=== PATIENT | male | born 1935 | race Caucasian/White ===

== ENCOUNTER 2021-10-10 10:21 | Inpatient (IN) ==
--- NOTE | 2021-10-10 12:31 | XRay Report ---
XR chest 2V PA/lateral HISTORY: Sepsis COMPARISON: None. FINDINGS: There is a 2 cm calcification within the right upper lobe. This is likely benign. A 9 mm no dular density at the left lung base favors a nipple shadow. No focal lung consolidations to suggest p neumonia. No evidence for pulmonary edema. The heart is normal in size. No pleural effusions. No pneu mothorax. IMPRESSION: No acute process. ACT 112: Negative or not required by law. Electronically signed by: Tam Child M.D. 10/10/2021 12:29 PM
[2021-10-10] MEDS ORDERED: SODIUM CHLORIDE 0.9% 1000ML 1,000 ML IV ONE (12:51)
--- NOTE | 2021-10-10 13:08 | Emergency Department Note ---
History of Present Illness General Chief complaint: Skin Problem Stated complaint: ABSCESS ON SCALP Time Seen by Provider: 10/10/21 12:44 Source: patient, RN notes reviewed and old records reviewed Mode of arrival: wheelchair Limitations: altered mental status (dementia) History of Present Illness Provider complaint: Worsening scalp wound Maximum Pain Intensity: 5 This is an 85-year-old male from a local incarceration facility who presents to the emergency room due to worsening scalp wound. Patient states it has been there for several days. Patient states he has pain in the area of the wound and along the left side of the head. Patient denies any fevers or chills. I did contact the [facility] to see direct view and spoke with the nurse there who states patient was started on oral clindamycin on the and was then changed to IV clindamycin on the . They state a wound culture was obtained on the but is still pending. They are concerned as the redness seems to be spreading along the scalp and the wound appeared worse. They state he has no history of MRSA, he is not a diabetic. They states due to his dementia he does tend to pick at things. He did have a prior abscess on his head a year ago that did get better with antibiotics. They state yesterday he was given an additional dose of IM Rocephin. Pt seen during a time of high acuity and national emergency pandemic while wearing PPE. Home Medications Medication Instructions Recorded Confirmed Type fluconazole 150 mg tablet 150 mg PO .weekly 1 dose #8 tabs 10/09/21 Rx ketoconazole 2 % shampoo See Rx Instructions .Route 10/09/21 Rx .COMPLEX #120 mL Allergies Allergy/AdvReac Type Severity Reaction Status Date / Time No Known Allergies Allergy Verified 10/10/21 13:38 Past Med/Surg History Medical History (Updated 10/10/21 @ 20:36 by Re Reyes DO) Alzheimer disease No pertinent family history Schizophrenia Surgical History No pertinent past surgical history Social History Smoking Status: Unknown if ever smoked Tobacco Type: Pipe and Cigars Feels Safe at Home: Yes Review of Systems A total of 10 systems reviewed and were otherwise negative All systems reviewed & are unremarkable except as noted in HPI & below Physical Exam Vital Signs Vital Signs - 24 hr 10/10/21 10:52 10/10/21 13:36 10/10/21 13:36 Temperature 36.7 C Temperature Source Temporal Artery Scan Pulse Rate 98 H 89 Pulse Rate [Apical] 89 Respiratory Rate 18 18 18 Respiratory Effort / Characteristics Non-Labored Respiratory Depth Normal Blood Pressure 90/51 L Blood Pressure [Right Arm] 124/77 Blood Pressure Mean 64 Blood Pressure Mean [Right Arm] 92 Pulse Oximetry 98 96 96 Oxygen Delivery Method Room Air Room Air Room Air Sepsis Recent Fever Within 48 Hours No Sepsis New/Unexplained Change in Mental Status No Sepsis Action Taken by Nursing No Action Required 10/10/21 14:31 Temperature Temperature Source Pulse Rate Pulse Rate [Apical] 89 Respiratory Rate 18 Respiratory Effort / Characteristics Non-Labored Respiratory Depth Normal Blood Pressure Blood Pressure [Right Arm] 153/89 H Blood Pressure Mean Blood Pressure Mean [Right Arm] 110 Pulse Oximetry 99 Oxygen Delivery Method Room Air Sepsis Recent Fever Within 48 Hours Sepsis New/Unexplained Change in Mental Status Sepsis Action Taken by Nursing GENERAL: alert, well appearing, well nourished, no distress, non-toxic HEAD: Maculopapular lesion noted to the right superior scalp with surrounding erythema extending anteriorly and posterolaterally along the left side of the head, no active drainage or bleeding, areas of demarcation with marking pen noted EYE EXAM: normal conjunctiva, PERRL and EOM's grossly intact OROPHARYNX: no exudate, no erythema, lips, buccal mucosa, and tongue normal and mucous membranes are moist NECK: supple, no nuchal rigidity, no adenopathy, non-tender LUNGS: Clear to auscultation. Normal chest wall mechanics, no w/r/r HEART: no murmurs, S1 normal and S2 normal ABDOMEN: abdomen soft, non-tender, normo-active bowel sounds, no masses, no rebound or guarding. BACK: Back is symmetrical on inspection and there is no deformity, no midline tenderness, no CVA tenderness. SKIN: no rashes and no bruising UPPER EXTREMITIES: upper extremities are grossly normal. FROM, nml pulses b/l. LOWER EXTREMITIES: No pitting edema. FROM, nml pulses b/l. NEURO EXAM: Pleasantly confused, cranial nerves II-XII grossly intact, normal speech, no gross weakness of arms, no gross weakness of legs. Gross sensation intact. Course Administered Medications Tamsulosin HCl (Tamsulosin Hcl 0.4 Mg Cap) 0.4 mg PO HS BRIAN Stop: 11/09/21 20:59 Last Admin: 10/10/21 20:21 Dose: 0.4 mg Documented By: ANANTH Discontinued Medications Sodium Chloride (Nss 1000ml) 1,000 mls @ 999 mls/hr IV .Q1H1M ONE Stop: 10/10/21 13:51 Last Infusion: 10/10/21 16:23 Dose: 0 mls/hr Documented By: Admin: 10/10/21 13:40 Dose: 999 mls/hr Documented By: HECTOR Vancomycin HCl 1,500 mg/ (Sodium Chloride) 530 mls @ 200 mls/hr IV NOW ONE Stop: 10/10/21 17:01 Last Infusion: 10/10/21 18:31 Dose: 0 mls/hr Documented By: Admin: 10/10/21 15:32 Dose: 200 mls/hr Documented By: MIRIAM Ceftriaxone Sodium (Rocephin) 1,000 mg in 50 mls @ 100 mls/hr IV NOW STA Stop: 10/10/21 14:52 Last Infusion: 10/10/21 15:19 Dose: 0 mls/hr Documented By: Admin: 10/10/21 14:40 Dose: 100 mls/hr Documented By: HECTOR Ceftriaxone Sodium 1,000 mg/ (Dextrose) 60 mls @ 120 mls/hr IV ONE ONE Stop: 10/10/21 16:29 Last Infusion: 10/10/21 18:31 Dose: 0 mls/hr Documented By: Admin: 10/10/21 17:39 Dose: 120 mls/hr Documented By: ANANTH Miscellaneous (Patient's Height &/Or Weight Needed) 1 each N/A Q30M BRIAN Stop: 11/09/21 17:15 Last Admin: 10/10/21 18:53 Dose: 1 each Documented By: Admin: 10/10/21 18:49 Dose: 1 each Documented By: Admin: 10/10/21 18:49 Dose: 1 each Documented By: ANANTH Medical Decision Making Differential Diagnosis Differential diagnosis includes etiologies such as cellulitis, abscess, MRSA infection, DVT, necrotizing fasciitis, dermatitis, drug eruption, as well as others were entertained. Medical Records Attestation: I reviewed the patient's medical records. Home Medications Current Medication List: was personally reviewed by me Laboratory Data Attestation: I reviewed the patient's lab results. Result diagrams: 10/10/21 13:05 10/10/21 13:05 Lab Results 10/10/21 10/10/21 10/10/21 Range/Units 13:05 13:05 13:05 WBC 16.32 H (4.8-10.8) K/ul RBC 4.51 L (4.63-6.08) M/uL Hgb 13.5 L (14.0-18.0) g/dl Hct 39.5 L (40.1-51.0) % MCV 87.6 (80.0-100.0) fL MCH 29.9 (25.0-34.0) pg MCHC 34.2 (32.0-36.0) g/dL RDW Std Deviation 46.6 H (36.4-46.3) fL RDW Coeff of Leo 14.5 (11.5-14.5) % Plt Count 336 (130-400) K/uL MPV 10.1 (9.4-12.4) fL Immature Gran % (Auto) 0.6 % Neut % (Auto) 82.8 % Lymph % (Auto) 6.4 % [place] % (Auto) 9.6 % Eos % (Auto) 0.4 % Baso % (Auto) 0.2 % Neut # (Auto) 13.50 H (1.4-6.5) K/uL Lymph # (Auto) 1.05 L (1.2-3.4) K/uL [place] # (Auto) 1.57 H (0.24-0.82) K/uL Eos # (Auto) 0.07 (0-0.50) K/uL Baso # (Auto) 0.03 (0-0.2) K/uL Immature Gran # (Auto) 0.10 H (0.00-0.02) K/uL PT 11.1 (9.0-12.0) Seconds INR 1.0 (0.9-1.1) APTT 27.5 (21.0-31.0) Seconds PTT Ratio 1.0 Sodium 137 (136-145) mmol/L Potassium 3.8 (3.5-5.1) mmol/L Chloride 101 (98-107) mmol/L Carbon Dioxide 26 (21-32) mmol/L Anion Gap 10 (3-11) BUN 24 H (6-23) mg/dl Creatinine 1.28 (0.6-1.4) mg/dl Est Cr Clr Drug Dosing Not Reportable Est GFR ( Amer) 57.9 ml/min Est GFR (Non-Af Amer) 50.0 ml/min BUN/Creatinine Ratio 18.8 (10-20) Glucose 117 H (70-99(Fasting)) mg/dl Calcium 9.2 (8.5-10.1) mg/dl Magnesium 2.0 (1.7-2.4) mg/dl Total Bilirubin 1.0 (0.2-1.0) mg/dl AST 23 (13-39) U/L ALT 16 (7-52) U/L Alkaline Phosphatase 72 (34-104) U/L Troponin I High Sens 28.3 H (0-20) pg/ml C-Reactive Protein (0-0.5) mg/dl Total Protein 7.4 (6.0-8.3) gm/dl Albumin 3.7 (3.4-5.0) gm/dl Globulin 3.7 (2.5-4.0) gm/dl Albumin/Globulin Ratio 1.0 (0.9-2) Procalcitonin (0-0.5) ng/ml SARS-CoV-2, RNA, NAAT (NEGATIVE) 10/10/21 10/10/21 10/10/21 Range/Units 13:05 13:05 14:35 WBC (4.8-10.8) K/ul RBC (4.63-6.08) M/uL Hgb (14.0-18.0) g/dl Hct (40.1-51.0) % MCV (80.0-100.0) fL MCH (25.0-34.0) pg MCHC (32.0-36.0) g/dL RDW Std Deviation (36.4-46.3) fL RDW Coeff of Leo (11.5-14.5) % Plt Count (130-400) K/uL MPV (9.4-12.4) fL Immature Gran % (Auto) % Neut % (Auto) % Lymph % (Auto) % [place] % (Auto) % Eos % (Auto) % Baso % (Auto) % Neut # (Auto) (1.4-6.5) K/uL Lymph # (Auto) (1.2-3.4) K/uL [place] # (Auto) (0.24-0.82) K/uL Eos # (Auto) (0-0.50) K/uL Baso # (Auto) (0-0.2) K/uL Immature Gran # (Auto) (0.00-0.02) K/uL PT (9.0-12.0) Seconds INR (0.9-1.1) APTT (21.0-31.0) Seconds PTT Ratio Sodium (136-145) mmol/L Potassium (3.5-5.1) mmol/L Chloride (98-107) mmol/L Carbon Dioxide (21-32) mmol/L Anion Gap (3-11) BUN (6-23) mg/dl Creatinine (0.6-1.4) mg/dl Est Cr Clr Drug Dosing Est GFR ( Amer) ml/min Est GFR (Non-Af Amer) ml/min BUN/Creatinine Ratio (10-20) Glucose (70-99(Fasting)) mg/dl Calcium (8.5-10.1) mg/dl Magnesium (1.7-2.4) mg/dl Total Bilirubin (0.2-1.0) mg/dl AST (13-39) U/L ALT (7-52) U/L Alkaline Phosphatase (34-104) U/L Troponin I High Sens (0-20) pg/ml C-Reactive Protein 19.60 H (0-0.5) mg/dl Total Protein (6.0-8.3) gm/dl Albumin (3.4-5.0) gm/dl Globulin (2.5-4.0) gm/dl Albumin/Globulin Ratio (0.9-2) Procalcitonin 1.75 H (0-0.5) ng/ml SARS-CoV-2, RNA, NAAT NEGATIVE (NEGATIVE) Imaging Data Radiologist's Impression: Chest X-Ray 10/10/21 11:44 XR chest 2V PA/lateral HISTORY: Sepsis COMPARISON: None. FINDINGS: There is a 2 cm calcification within the right upper lobe. This is likely benign. A 9 mm nodular density at the left lung base favors a nipple shadow. No focal lung consolidations to suggest pneumonia. No evidence for pulmonary edema. The heart is normal in size. No pleural effusions. No pneumothorax. IMPRESSION: No acute process. ACT 112: Negative or not required by law. Electronically signed by: Tam Child M.D. 10/10/2021 12:29 PM MDM Narrative This is an 85-year-old male brought in from local correctional facility. Patient already on antibiotics per [facility] for presumed abscess and evolving cellulitis. Nothing aspirated during patient's ED visit here yesterday. Staff they are concerned involved area appears to be spreading as he has worsening erythema outside previously demarcated lines. Labs drawn and sent, cultures obtained, and antibiotics discussed with the ED pharmacist. While patient was afebrile and hemodynamically stable, he did have a leukocytosis as well as elevated procalcitonin. Patient started on Rocephin and Doxy per ED pharmacist recommendation. Case discussed with hospitalist for additional evaluation and management. Impression & Plan Abscess of scalp, Cellulitis of head or scalp, Failure of outpatient treatment, Elevated procalcitonin Discharge Plan Visit Data Chief Complaint: Skin Problem Stated Complaint: ABSCESS ON SCALP ED Provider: Re Reyes Discharge Problem: Abscess of scalp, Cellulitis of head or scalp, Failure of outpatient treatment, Elevated procalcitonin Patient Disposition: Admitted As Inpatient Discharge Instructions Interventions: ED Discharge Assessment Last Done: 10/10/21 17:30
[2021-10-10 13:32] LABS: Basophils # (auto) 0.03 K/uL (0-0.2); Basophils % (auto) 0.2 %; Eosinophils # (auto) 0.07 K/uL (0-0.50); Eosinophils % (auto) 0.4 %; Hematocrit (blood only) 39.5 % (40.1-51.0); Hemoglobin 13.5 g/dl (14.0-18.0); Immature Granulocytes % (auto) 0.6 %; Lymphocytes # (auto) 1.05 K/uL (1.2-3.4); Lymphocytes % (auto) 6.4 %; Mean Corpuscular Hemoglobin 29.9 pg (25.0-34.0); Mean Corpuscular Hgb Conc 34.2 g/dL (32.0-36.0); Mean Corpuscular Volume 87.6 fL (80.0-100.0); Mean Platelet Volume 10.1 fL (9.4-12.4); Monocytes # (auto) 1.57 K/uL (0.24-0.82); Monocytes % (auto) 9.6 %; Neutrophils % (auto) 82.8 %; Platelet Count 336 K/uL (130-400); RDW Coefficient of Variation 14.5 % (11.5-14.5); RDW Standard Deviation 46.6 fL (36.4-46.3); Red Blood Count 4.51 M/uL (4.63-6.08); White Blood Count 16.32 K/ul (4.8-10.8)
[2021-10-10 13:46] LABS: Partial Thromboplastin Time 27.5 Seconds (21.0-31.0); Prothrombin Time 11.1 Seconds (9.0-12.0)
[2021-10-10 13:55] LABS: Alanine Aminotransferase 16 U/L (7-52); Albumin Level 3.7 gm/dl (3.4-5.0); Alkaline Phosphatase 72 U/L (34-104); Anion Gap 10 (3-11); Aspartate Aminotransferase 23 U/L (13-39); BUN Creatinine Ratio 18.8 (10-20); Blood Urea Nitrogen 24 mg/dl (6-23); Calcium 9.2 mg/dl (8.5-10.1); Carbon Dioxide 26 mmol/L (21-32); Chloride 101 mmol/L (98-107); Est GFR (African American) 57.9 ml/min; Globulin 3.7 gm/dl (2.5-4.0); Glucose 117 mg/dl (70-99(Fasting)); Potassium 3.8 mmol/L (3.5-5.1); Sodium 137 mmol/L (136-145); Total Protein 7.4 gm/dl (6.0-8.3); Troponin I High Sensitivity 28.3 pg/ml (0-20)
[2021-10-10] MEDS ORDERED: VANCOMYCIN CONSULT ACTIVE PRN (14:23)
[2021-10-10] MEDS ORDERED: VANCOMYCIN HCL 1,500 MG in SODIUM CHLORIDE 0.9% 500 ML IV ONE (14:23)
[2021-10-10] MEDS ORDERED: cefTRIAXone SODIUM 1,000 MG/50 ML BAG IV STA (14:23)
--- NOTE | 2021-10-10 14:50 | History & Physical Report ---
Date of Service October 10, 2021 Assessment & Plan (1) Cellulitis: Plan: Cellulitis, left posterior scalp expanding past borders failing outpatient treatment With area of fluctuance concerning for abscess. Mildly purulent. Expanding borders of erythema starting from lump at left posterior scalp extending to the nape of the neck into the temples. Erythema extends past multiple marked lines of expansion. Is slightly tender to the touch. Follow for cultures obtained present, no growth to date Continue Rocephin/vancomycin. Ultrasound obtained to evaluate for fluid, if area of abscess would need drainage and can consult general surgery. Will not consider Rocephin failure yet has only received 1 dose, and possible MRSA given purulence. Cultures pending. Leukocytosis to 16.32 Sodium normal, potassium normal Creatinine 1.28 on admission, at baseline Procalcitonin 1.75 Mildly hypertensive, pulse 89, respirations 18, afebrile and satting well on room CXR: No acute process Blood cultures pending x2 EKG with right bundle branch block, no acute findings Urinary retention/overflow/LUTS Continue Myrbetriq, Flomax Bladder scan every shift, cath as needed Alzheimer's dementia Continue donepezil DVT prophylaxis: Heparin twice daily, hold if I&D required CODE STATUS: Full code Diet: Regular Disposition: Medical/surgical (2) BPH w urinary obs/LUTS: History of Present Illness Primary Care Provider: HILTON Stanley Franki is an 85-year-old male in the who presents from alf with a worsening scalp wound present for several days which did not improve on oral and then subsequently IV clindamycin. Wound culture was obtained on 10/08, remains pending. Redness at the scalp appears to be spreading. No MRSA, no history of diabetes. Patient does have dementia and picks at his wounds. Did have an abscess 1 year previously. Did get IM Rocephin yesterday. Failing to improve, has an area of fluctuance. Seen at the bedside. History is somewhat limited by dementia. Reports that he has had a large lump on the back of his head which is painful which he thinks oozes. Is not sure how long it has been there. Is not oriented to year. Endorses feeling feverish with some chills. No lightheadedness, dizziness, chest pain, chest pressure, palpitations. Did receive clindamycin p.o. for at least 5 days, then tried IV, and then received 1 dose of oral Rocephin with continued expansion of borders. Has been referred for additional treatment care cellulitis. Patient is unable to give medical history due to dementia and is tangential however medical review as follows: Vascular dementia without behavioral disturbance, Alzheimer's Incontinence History of corneal transplant Anemia with B12 deficiency BPH with LUTS Chronic medications Tylenol daily, artificial tears, donepezil 10 mg daily, finasteride 5 mg daily, hydroxyzine 25 mg 3 times daily, Myrbetriq 25 mg daily, prednisone ophthalmic into the left eye once daily, tamsulosin 0.4 mg 1 capsule twice daily Medical History: Reviewed Medications: Reviewed Surgical History: Reviewed Allergies: Reviewed Social History: No tobacco/alcohol use Code Status: Full code Allergies Allergy/AdvReac Type Severity Reaction Status Date / Time No Known Allergies Allergy Verified 10/10/21 13:38 Home Medications Medication Instructions Recorded Confirmed Type fluconazole 150 mg tablet 150 mg PO .weekly 1 dose #8 tabs 10/09/21 Rx ketoconazole 2 % shampoo See Rx Instructions .Route 10/09/21 Rx .COMPLEX #120 mL Past Med/Surg History Medical History (Updated 10/10/21 @ 15:08 by Gerard Viera MD) Alzheimer disease No pertinent family history Schizophrenia Surgical History No pertinent past surgical history Social History Smoking Status: Unknown if ever smoked Tobacco Type: Pipe and Cigars Feels Safe at Home: Yes Review of Systems Review of Systems: All systems reviewed & are unremarkable except as noted in Subjective Physical Exam Physical Exam: General: Patient is now oriented to year or month. Oriented to name HEENT: Posterior left scalp with 3 cm raised lump with palpable fluctuance, overlying purulence and surrounding erythema expanding overlying the lutheran and mid scalp posteriorly without underlying fluctuance. Has passed multiple marked lines. Pulm: CTAB A&P. -wheezes, -rales, -rhonchi. Symmetrical chest rise. No increase in work of breathing. No respiratory distress. Cardiac: RRR, -mrg. Radial pulses intact and symmetrical. Abdominal: Nontender, nondistended, soft. BS present. Extremities: Moves all extremities equally. Sensation soft touch intact in hands and feet without asymmetry Results & Data Results & Data ([facility]) Vital Signs (Past 12 Hours) Vital Signs Temp Pulse Pulse Resp BP BP Pulse Ox 10/10/21 14:31 89 18 153/89 H 99 10/10/21 13:36 89 18 96 10/10/21 13:36 89 18 124/77 96 10/10/21 10:52 36.7 C 98 H 18 90/51 L 98 O2 Del Method 10/10/21 14:31 Room Air 10/10/21 13:36 Room Air 10/10/21 13:36 Room Air 10/10/21 10:52 Room Air PG Care Time/CCT Total # of Minutes Spent Total Time Spent with Patient: Total time spent is greater than 50% in coordination of care (as documented) at patient's floor/unit and/or counseling patient: Coding Level of Care Code INT OBSERVATION CARE 50M LVL 2 Diagnoses Cellulitis L03.90 BPH w urinary obs/LUTS N40.1; N13.8
[2021-10-10] MEDS ORDERED: cefTRIAXone SODIUM 1,000 MG in DEXTROSE 5% 50 ML IV ONE (16:00)
[2021-10-10] MEDS: Patient's HEIGHT &/or WEIGHT Needed SCH ×2 (18:49→18:53)
[2021-10-10] MEDS: TAMSULOSIN HCL 0.4 MG CAP PO SCH (20:21)
--- NOTE | 2021-10-10 21:02 | Pharmacy Report ---
Pharmacy PK ABX Note - Date of Service October 10, 2021 - Assessment and Plan Assessment 85 year old M receiving vancomycin/ceftriaxone for treatment of left posterior scalp cellulitis. Patient with leukocytosis, elevated procalcitonin. Blood cultures pending. Plan Vancomycin * Loading dose: 1500 mg IV x 1 * Maintenance dose: 1000 mg IV every 24 hours * Regimen is predicted to achieve target AUC/MELVIN of 400-600 mg/L.hr * Random to be ordered if vancomycin continued greater than 48 hours Pharmacy will continue to follow and will adjust dose/frequency as necessary. Thank you. Pharmacy has transitioned to AUC monitoring for vancomycin. AUC/MELVIN is the preferred PK/PD target and is associated with decreased risk of nephrotoxicity compared to traditional trough targets.
[2021-10-10] MEDS: HEPARIN SOD 5,000 UNIT/0.5 ML VIAL SQ SCH (23:36)
[2021-10-11 06:56] LABS: A calco-baum cmplx NotReported Not Detected (NotDetected); Bact fragilis Not Reported Not Detected (NotDetected); C auris Not Reported Not Detected (NotDetected); Calbicans Not Reported Not Detected (NotDetected); Candida glabrata Not Reported Not Detected (NotDetected); Candida krusei Not Reported Not Detected (NotDetected); Cneoformans/gatti Not Reported Not Detected (NotDetected); Cparapsilosis Not Reported Not Detected (NotDetected); Ctropicalis Not Reported Not Detected (NotDetected); E cloacae compx Not Reported Not Detected (NotDetected); Efaecalis Not Reported Not Detected (NotDetected); Efaecium Not Reported Not Detected (NotDetected); Enterobacterales Not Reported Not Detected (NotDetected); Escherichia coli Not Reported Not Detected (NotDetected); H influenzae Not Reported Not Detected (NotDetected); K aerogenes Not Reported Not Detected (NotDetected); Koxytoca Not Reported Not Detected (NotDetected); Kpneumoniae grp Not Reported Not Detected (NotDetected); Lmonocyt Not Reported Not Detected (NotDetected); N meningitidis Not Reported Not Detected (NotDetected); P aeruginosa Not Reported Not Detected (NotDetected); Proteus spp Not Reported Not Detected (NotDetected); Salmonella spp Not Reported Not Detected (NotDetected); Smarcescens Not Reported Not Detected (NotDetected); Staph lugdunensis Not Reported Not Detected (NotDetected); Staph spp. Not Reported DETECTED (NotDetected); Staphaureus Not Reported DETECTED (NotDetected); Staphepi Not Reported Not Detected (NotDetected); Staphylococcus spp. DETECTED (NotDetected); Stenmaltophilia Not Reported Not Detected (NotDetected); Strep agal(GrpB) Not Reported Not Detected (NotDetected); Strep pneum Not Reported Not Detected (NotDetected); Strep pyog (GrpA) Not Reported Not Detected (NotDetected); Strep spp Not Reported Not Detected (NotDetected); mecAC+MREJ Resistant Gene MRSA Not Detected (NotDetected)
[2021-10-11] MEDS: DONEPEZIL HCL 10 MG TAB PO SCH (08:04)
[2021-10-11] MEDS: HEPARIN SOD 5,000 UNIT/0.5 ML VIAL SQ SCH ×2 (08:04→21:36)
[2021-10-11] MEDS: MIRABEGRON ER 25 MG TAB PO SCH (08:04)
[2021-10-11 08:31] LABS: Appearance Urine Clear (Clear); Bilirubin Urine Negative (Negative); Blood Urine Negative (Negative); Color Urine Yellow; Glucose Urine UA Negative (Negative); Ketones Urine Trace (Negative); Leukocyte Esterase Urine Negative (Negative); Nitrite Urine Negative (Negative); Protein Urine Negative (Negative); Specific Gravity Urine 1.018 (1.000-1.030); Urobilinogen Urine Negative (Negative); pH Urine 5.5 (4.5-7.5)
[2021-10-11 08:41] LABS: Basophils # (auto) 0.03 K/uL (0-0.2); Basophils % (auto) 0.2 %; Eosinophils # (auto) 0.31 K/uL (0-0.50); Eosinophils % (auto) 2.3 %; Hematocrit (blood only) 34.5 % (40.1-51.0); Hemoglobin 11.6 g/dl (14.0-18.0); Immature Granulocytes # (auto) 0.12 K/uL (0.00-0.02); Immature Granulocytes % (auto) 0.9 %; Lymphocytes # (auto) 1.56 K/uL (1.2-3.4); Lymphocytes % (auto) 11.4 %; Mean Corpuscular Hemoglobin 29.8 pg (25.0-34.0); Mean Corpuscular Hgb Conc 33.6 g/dL (32.0-36.0); Mean Corpuscular Volume 88.7 fL (80.0-100.0); Mean Platelet Volume 9.7 fL (9.4-12.4); Monocytes # (auto) 1.61 K/uL (0.24-0.82); Monocytes % (auto) 11.8 %; Neutrophils # (auto) 10.07 K/uL (1.4-6.5); Neutrophils % (auto) 73.4 %; Platelet Count 319 K/uL (130-400); RDW Coefficient of Variation 14.4 % (11.5-14.5); RDW Standard Deviation 46.5 fL (36.4-46.3); Red Blood Count 3.89 M/uL (4.63-6.08)
--- NOTE | 2021-10-11 08:47 | Ultrasound Report ---
US soft tissue head and neck CLINICAL HISTORY: limited to post R scalp, ?abscess. Left posterior scalp swelling. COMPARISON STUDY: Head CT 05/12/2019. FINDINGS: Real-time sonographic imaging of the posterior scalp was performed with student services representative imag es submitted. There is a subcutaneous ill-defined hypoechoic collection measuring 34 x 19 x 8 mm. The re is increased color flow surrounding this area. There is a small tract that extends to the skin yann face. Therefore, this favors a small abscess. Follow-up can be performed to ensure resolution and to exclude an infiltrating lesion. IMPRESSION: There is a subcutaneous ill-defined hypoechoic collection measuring 34 x 19 x 8 a small tract that extends to the skin surface. This favors a small abscess. Follow-up can be performed to en sure resolution and to exclude an infiltrating lesion. ACT 112: Negative or not required by law. Electronically signed by: Tam Child M.D. 10/11/2021 8:45 AM
[2021-10-11] MEDS ORDERED: VANCOMYCIN HCL 1,000 MG in SODIUM CHLORIDE 0.9% 250 ML IV SCH (09:00)
[2021-10-11 09:03] LABS: Albumin Globulin Ratio 0.9 (0.9-2); Albumin Level 2.9 gm/dl (3.4-5.0); BUN Creatinine Ratio 18.5 (10-20); Bilirubin,Total 0.8 mg/dl (0.2-1.0); C Reactive Protein 15.56 mg/dl (0-0.5); Calcium 8.2 mg/dl (8.5-10.1); Creatinine Clr Calc Pharmacy 48.2 ml/min; Est GFR (African American) 71.1 ml/min; Est GFR (Non-African American) 61.4 ml/min; Globulin 3.1 gm/dl (2.5-4.0); Potassium 3.3 mmol/L (3.5-5.1)
--- NOTE | 2021-10-11 09:03 | Electrocardiogram Report ---
Test Reason : Blood Pressure : / mmHG Vent. Rate : 091 BPM Atrial Rate : 091 BPM P-R Int : 180 ms QRS Dur : 128 ms QT Int : 392 ms P-R-T Axes : 031 028 031 degrees QTc Int : 482 ms Normal sinus rhythm with sinus arrhythmia Right bundle branch block Abnormal ECG No previous ECGs available Confirmed by Christian Garner ([id number]) on 10/11/2021 9:02:59 AM Referred By: [facility] Confirmed By:Christian Garner
--- NOTE | 2021-10-11 09:58 | XCELERA ---
[id number]
--- NOTE | 2021-10-11 12:52 | Hospitalist Progress Note ---
Date of Service October 11, 2021 Assessment & Plan (1) Cellulitis: Plan: Cellulitis with abscess formation of scalp that failed outpatient treatment - Initially placed in obs, started on Rocephin and Vancomycin - Change to full admit - Blood cultures positive w/ growth of staph, MSSA via biofire c/w bacteremia - D/c Rocephin/Vanco and change to Ancef 2g IV q8h - Consult general surgery for I&D, appreciate assistance - Hold Heparin - Leukocytosis slowly improving (2) Bacteremia: Plan: - MSSA, abx as above - Echocardiogram completed-no evidence of vegetation - Repeat blood cultures on 10/12, if negative will require midline insertion and total of 14 days of IV abx (3) Hypokalemia: Plan: - Replacement ordered (4) Alzheimer disease: Plan: - Continue Aricept and Namenda (5) BPH w urinary obs/LUTS: Plan: - Continue Flomax - Bladder scan and cath as needed Plan Interventions as outlined above. Make full admission. Repeat labs in AM and blood cultures. Proceed with midline insertion if blood cultures from tomorrow are negative. CM consult for d/c planning, unsure if detention will be able to accommodate IV abx. Plan to be d/w Dr. Jun Manuel. Admission and Anticipated Discharge Date Admission Date: October 10, 2021 Subjective Patient seen on daily rounds this morning. He is resting comfortably in bed and offers no new complaints/concerns at this time. Pt with dementia and TORRES MARTINEZ but denies c/o pain, fever, chills, chest pain, dyspnea, n/v/d, headache, or gu symptoms. Pt's reliability uncertain. Review of Systems Review of Systems: All systems reviewed and are unremarkable except as noted in HPI and below. Denies fever, chills, fatigue, headache, nasal congestion, sore throat, cough, chest pain, shortness of breath, palpitations, orthopnea, PND, abdominal pain, n/v/d, constipation, dysuria, hematuria, frequency, back pain, joint pain or swelling, easy bruising or bleeding. Physical Exam Physical Exam: GENERAL: 85 yo Well-developed, well-nourished elderly WM. NAD. LUNGS: Clear to auscultation bilaterally. No W/R/R. CARDIOVASCULAR: Regular rate and rhythm. ABDOMEN: Soft, non-tender and non-distended. BS normoactive x 4 quad. EXTREMITIES: No edema. Non-tender. Peripheral pulses +2/4. NEUROLOGIC: A&O x3. Nonfocal PSYCHIATRIC: Pleasant, Cooperative. Appropriate mood and affect. SKIN: Warm, dry, intact. Erythema noted over scalp and portion of face. 50 cent piece area of fluctuance on top of scalp. Results & Data Results & Data ([facility]) Vital Signs (Past 12 Hours) Vital Signs Temp Pulse Resp BP Pulse Ox O2 Del Method 10/11/21 09:00 Room Air 10/11/21 08:02 37.2 C 82 16 145/75 H 98 Room Air Laboratory Results 10/11/21 08:19 10/11/21 08:19 Diagnostic Findings Head/Neck Ultrasound 10/10/21 15:40 US soft tissue head and neck CLINICAL HISTORY: limited to post R scalp, ?abscess. Left posterior scalp swelling. COMPARISON STUDY: Head CT 05/12/2019. FINDINGS: Real-time sonographic imaging of the posterior scalp was performed with associate financial representative images submitted. There is a subcutaneous ill-defined hypoechoic collection measuring 34 x 19 x 8 mm. There is increased color flow surrounding this area. There is a small tract that extends to the skin surface. Therefore, this favors a small abscess. Follow-up can be performed to ensure resolution and to exclude an infiltrating lesion. IMPRESSION: There is a subcutaneous ill-defined hypoechoic collection measuring 34 x 19 x 8 a small tract that extends to the skin surface. This favors a small abscess. Follow-up can be performed to ensure resolution and to exclude an infiltrating lesion. ACT 112: Negative or not required by law. Electronically signed by: Tam Child M.D. 10/11/2021 8:45 AM PG Care Time/CCT Total # of Minutes Spent Total Time Spent with Patient: Total time spent is greater than 50% in coordination of care (as documented) at patient's floor/unit and/or counseling patient: Coding Level of Care Code 19993 Subseq Hosp Care Lvl 3 Diagnoses Cellulitis L03.90 Bacteremia R78.81 Hypokalemia E87.6 Alzheimer disease G30.9; F02.80 BPH w urinary obs/LUTS N40.1; N13.8
--- NOTE | 2021-10-11 13:37 | Surgery Consultation ---
Date of Consultation October 11, 2021 Assessment & Plan (1) Abscess of scalp: (2) Cellulitis: (3) Bacteremia: Plan 85 year-old male with scalp abscess, cellulitis, and bacteremia with failed outpatient treatment with oral antibiotics and a dose of IV clindamycin. Exam consistent with scalp abscess and cellulitis. Plan: Discussed with patient the imaging findings and exam findings with a scalp abscess and need for drainage to control the infection as antibiotics will not treat the abscess alone. Discussed procedure under local anesthesia and discussed risks. This was also discussed with patient by Dr. Manuel. Patient elected to proceed. Informed consent obtained. See separate dictation for bedside I&D Dr. Manuel has seen and examined pt, agrees with above. Supervising Physician Co-Signing Physician Notes I have seen and examined the patient agree with the above assessment plan. He does have what appears to be scalp abscess. I have discussed the risks and benefits of incision and drainage of the abscess with him. He is agreeable to proceed. We will obtain consent and do this at the bedside. History of Present Illness Reason for Consultation: Scalp abscess Requesting Physician: Vanessa Nicholson PA-C Attending Physician: Mikel Manuel MD History of Present Illness Franki is an 85-year-old male in the who presents from [facility] with a worsening scalp wound present for several days which did not improve on oral and then subsequently IV clindamycin.History obtained by chart as patient poor historian given dementia. No MRSA, no history of diabetes. He had an ultrasound of the scalp which showed an ill-defined fluid collection with tract extending to skin likely an abscess. He had positive blood cultures of gram positive cocci. Allergies Allergy/AdvReac Type Severity Reaction Status Date / Time sulfamethoxazole AdvReac Unknown Unknown Unverified 10/11/21 07:13 [From Bactrim] trimethoprim [From Bactrim] AdvReac Unknown Unknown Unverified 10/11/21 07:13 Home Medications Medication Instructions Recorded Confirmed Type cyanocobalamin (vitamin B-12) 1,000 mcg IM Q4WK 05/12/19 05/12/19 History 1,000 mcg/mL injection kit erythromycin 5 mg/gram (0.5 %) eye 1 applic OPL TID 05/12/19 05/12/19 History ointment finasteride 5 mg tablet 5 mg PO DAILY 05/12/19 05/12/19 History polyvinyl alcohol 1.4 % eye drops 1 drp OPB QID 05/12/19 05/12/19 History (Artificial Tears (polyvinyl alcohol)) prednisolone acetate 1 % eye 1 drp ophthalmic (eye) UD 05/12/19 05/12/19 History drops,suspension (Pred Forte) mirabegron 25 mg tablet,extended 25 mg PO DAILY #30 tabs 07/12/20 07/12/20 Rx release 24 hr (Myrbetriq) fluconazole 150 mg tablet 150 mg PO .weekly 1 dose #8 tabs 10/09/21 Rx ketoconazole 2 % shampoo See Rx Instructions .Route 10/09/21 Rx .COMPLEX #120 mL Patient History Medical History (Updated 10/12/21 @ 14:49 by Vanessa Nicholson PA-C) Alzheimer disease B12 deficiency Dementia Hearing loss No pertinent family history Schizophrenia Surgical History History of cataract surgery No pertinent past surgical history Social History (System 10/11/21 @ 07:13 by Nita Manuel) Smoking Status: Former smoker Tobacco Type: Pipe and Cigars Cigarettes Per Day: occasionally; Second Hand Exposure: No; Do You Dip or Chew Tobacco: No; Tobacco Cessation Education Requested by Patient: No Hx Alcohol Use: No Hx Substance Use: No Preferred Language: Botswanan Communication Ability: Impaired Dismantler Required: No Beliefs That Will Affect Care: None Current Living Situation: Other Current Living Situation Comment: Senior Living Other Information That Helps Us Care for You: No Feels Safe at Home: Yes Safety Concerns: Feels Safe At This Time Assistive Devices: None Physical Exam Constitutional: WD/WN, vitals as above cooperative; no acute distress and not ill appearing Neck: normal visual inspection and trachea midline Skin: no rashes, warm and dry There is a 3 x 3 cm abscess of the scalp with some scabbing present and surrounding cellulitis extending down to the left posterior ear and posterior scalp. Prior skin marking visible. There is fluctuance present . Tender to palpation. Psychiatric: Orientation: alert and oriented to person; + not oriented to place and + not oriented to time Results & Data ([facility]) Vital Signs (Past 12 Hours) Vital Signs Temp Pulse Resp BP Pulse Ox O2 Del Method 10/11/21 09:00 Room Air 10/11/21 08:02 37.2 C 82 16 145/75 H 98 Room Air Laboratory Results 10/11/21 10/11/21 10/11/21 Range/Units 08:23 08:20 08:19 WBC (4.8-10.8) K/ul RBC (4.63-6.08) M/uL Hgb (14.0-18.0) g/dl Hct (40.1-51.0) % MCV (80.0-100.0) fL MCH (25.0-34.0) pg MCHC (32.0-36.0) g/dL RDW Std Deviation (36.4-46.3) fL RDW Coeff of Leo (11.5-14.5) % Plt Count (130-400) K/uL MPV (9.4-12.4) fL Immature Gran % (Auto) % Neut % (Auto) % Lymph % (Auto) % [place] % (Auto) % Eos % (Auto) % Baso % (Auto) % Neut # (Auto) (1.4-6.5) K/uL Lymph # (Auto) (1.2-3.4) K/uL [place] # (Auto) (0.24-0.82) K/uL Eos # (Auto) (0-0.50) K/uL Baso # (Auto) (0-0.2) K/uL Immature Gran # (Auto) (0.00-0.02) K/uL PT (9.0-12.0) Seconds INR (0.9-1.1) APTT (21.0-31.0) Seconds PTT Ratio Sodium 138 (136-145) mmol/L Potassium 3.3 L (3.5-5.1) mmol/L Chloride 105 (98-107) mmol/L Carbon Dioxide 26 (21-32) mmol/L Anion Gap 7 (3-11) BUN 20 (6-23) mg/dl Creatinine 1.08 (0.6-1.4) mg/dl Est Cr Clr Drug Dosing 48.2 Est GFR ( Amer) 71.1 ml/min Est GFR (Non-Af Amer) 61.4 ml/min BUN/Creatinine Ratio 18.5 (10-20) Glucose 85 (70-99(Fasting)) mg/dl Calcium 8.2 L (8.5-10.1) mg/dl Magnesium (1.7-2.4) mg/dl Total Bilirubin 0.8 (0.2-1.0) mg/dl AST 21 (13-39) U/L ALT 16 (7-52) U/L Alkaline Phosphatase 57 (34-104) U/L Troponin I High Sens (0-20) pg/ml C-Reactive Protein 15.56 H (0-0.5) mg/dl Total Protein 6.0 (6.0-8.3) gm/dl Albumin 2.9 L (3.4-5.0) gm/dl Globulin 3.1 (2.5-4.0) gm/dl Albumin/Globulin Ratio 0.9 (0.9-2) Procalcitonin (0-0.5) ng/ml Urine Color Yellow Urine Appearance Clear (Clear) Urine pH 5.5 (4.5-7.5) Ur Specific [place] 1.018 (1.000-1.030) Urine Protein Negative (Negative) Urine Glucose (UA) Negative (Negative) Urine Ketones Trace H (Negative) Urine Blood Negative (Negative) Urine Nitrite Negative (Negative) Urine Bilirubin Negative (Negative) Urine Urobilinogen Negative (Negative) Ur Leukocyte Esterase Negative (Negative) Nasal Screen MRSA (PCR) Negative (Negative) SARS-CoV-2, RNA, NAAT (NEGATIVE) Staphylococcus sp PCR (NotDetected) Staph aureus (PCR) (NotDetected) mecA/C & MREJ Resist Gene (NotDetected) Bld Cult ID Panel PCR (NotDetected) 10/11/21 10/10/21 10/10/21 Range/Units 08:19 14:35 14:05 WBC 13.70 H (4.8-10.8) K/ul RBC 3.89 L (4.63-6.08) M/uL Hgb 11.6 L (14.0-18.0) g/dl Hct 34.5 L (40.1-51.0) % MCV 88.7 (80.0-100.0) fL MCH 29.8 (25.0-34.0) pg MCHC 33.6 (32.0-36.0) g/dL RDW Std Deviation 46.5 H (36.4-46.3) fL RDW Coeff of Leo 14.4 (11.5-14.5) % Plt Count 319 (130-400) K/uL MPV 9.7 (9.4-12.4) fL Immature Gran % (Auto) 0.9 % Neut % (Auto) 73.4 % Lymph % (Auto) 11.4 % [place] % (Auto) 11.8 % Eos % (Auto) 2.3 % Baso % (Auto) 0.2 % Neut # (Auto) 10.07 H (1.4-6.5) K/uL Lymph # (Auto) 1.56 (1.2-3.4) K/uL [place] # (Auto) 1.61 H (0.24-0.82) K/uL Eos # (Auto) 0.31 (0-0.50) K/uL Baso # (Auto) 0.03 (0-0.2) K/uL Immature Gran # (Auto) 0.12 H (0.00-0.02) K/uL PT (9.0-12.0) Seconds INR (0.9-1.1) APTT (21.0-31.0) Seconds PTT Ratio Sodium (136-145) mmol/L Potassium (3.5-5.1) mmol/L Chloride (98-107) mmol/L Carbon Dioxide (21-32) mmol/L Anion Gap (3-11) BUN (6-23) mg/dl Creatinine (0.6-1.4) mg/dl Est Cr Clr Drug Dosing Est GFR ( Amer) ml/min Est GFR (Non-Af Amer) ml/min BUN/Creatinine Ratio (10-20) Glucose (70-99(Fasting)) mg/dl Calcium (8.5-10.1) mg/dl Magnesium (1.7-2.4) mg/dl Total Bilirubin (0.2-1.0) mg/dl AST (13-39) U/L ALT (7-52) U/L Alkaline Phosphatase (34-104) U/L Troponin I High Sens (0-20) pg/ml C-Reactive Protein (0-0.5) mg/dl Total Protein (6.0-8.3) gm/dl Albumin (3.4-5.0) gm/dl Globulin (2.5-4.0) gm/dl Albumin/Globulin Ratio (0.9-2) Procalcitonin (0-0.5) ng/ml Urine Color Urine Appearance (Clear) Urine pH (4.5-7.5) Ur Specific [place] (1.000-1.030) Urine Protein (Negative) Urine Glucose (UA) (Negative) Urine Ketones (Negative) Urine Blood (Negative) Urine Nitrite (Negative) Urine Bilirubin (Negative) Urine Urobilinogen (Negative) Ur Leukocyte Esterase (Negative) Nasal Screen MRSA (PCR) (Negative) SARS-CoV-2, RNA, NAAT NEGATIVE (NEGATIVE) Staphylococcus sp PCR DETECTED A (NotDetected) Staph aureus (PCR) DETECTED A (NotDetected) mecA/C & MREJ Resist Gene MRSA Not Detected (NotDetected) Bld Cult ID Panel PCR See PCR Comment (NotDetected) 10/10/21 10/10/21 10/10/21 Range/Units 13:05 13:05 13:05 WBC (4.8-10.8) K/ul RBC (4.63-6.08) M/uL Hgb (14.0-18.0) g/dl Hct (40.1-51.0) % MCV (80.0-100.0) fL MCH (25.0-34.0) pg MCHC (32.0-36.0) g/dL RDW Std Deviation (36.4-46.3) fL RDW Coeff of Leo (11.5-14.5) % Plt Count (130-400) K/uL MPV (9.4-12.4) fL Immature Gran % (Auto) % Neut % (Auto) % Lymph % (Auto) % [place] % (Auto) % Eos % (Auto) % Baso % (Auto) % Neut # (Auto) (1.4-6.5) K/uL Lymph # (Auto) (1.2-3.4) K/uL [place] # (Auto) (0.24-0.82) K/uL Eos # (Auto) (0-0.50) K/uL Baso # (Auto) (0-0.2) K/uL Immature Gran # (Auto) (0.00-0.02) K/uL PT (9.0-12.0) Seconds INR (0.9-1.1) APTT (21.0-31.0) Seconds PTT Ratio Sodium 137 (136-145) mmol/L Potassium 3.8 (3.5-5.1) mmol/L Chloride 101 (98-107) mmol/L Carbon Dioxide 26 (21-32) mmol/L Anion Gap 10 (3-11) BUN 24 H (6-23) mg/dl Creatinine 1.28 (0.6-1.4) mg/dl Est Cr Clr Drug Dosing Not Reportable Est GFR ( Amer) 57.9 ml/min Est GFR (Non-Af Amer) 50.0 ml/min BUN/Creatinine Ratio 18.8 (10-20) Glucose 117 H (70-99(Fasting)) mg/dl Calcium 9.2 (8.5-10.1) mg/dl Magnesium 2.0 (1.7-2.4) mg/dl Total Bilirubin 1.0 (0.2-1.0) mg/dl AST 23 (13-39) U/L ALT 16 (7-52) U/L Alkaline Phosphatase 72 (34-104) U/L Troponin I High Sens 28.3 H (0-20) pg/ml C-Reactive Protein 19.60 H (0-0.5) mg/dl Total Protein 7.4 (6.0-8.3) gm/dl Albumin 3.7 (3.4-5.0) gm/dl Globulin 3.7 (2.5-4.0) gm/dl Albumin/Globulin Ratio 1.0 (0.9-2) Procalcitonin 1.75 H (0-0.5) ng/ml Urine Color Urine Appearance (Clear) Urine pH (4.5-7.5) Ur Specific [place] (1.000-1.030) Urine Protein (Negative) Urine Glucose (UA) (Negative) Urine Ketones (Negative) Urine Blood (Negative) Urine Nitrite (Negative) Urine Bilirubin (Negative) Urine Urobilinogen (Negative) Ur Leukocyte Esterase (Negative) Nasal Screen MRSA (PCR) (Negative) SARS-CoV-2, RNA, NAAT (NEGATIVE) Staphylococcus sp PCR (NotDetected) Staph aureus (PCR) (NotDetected) mecA/C & MREJ Resist Gene (NotDetected) Bld Cult ID Panel PCR (NotDetected) 10/10/21 Range/Units 13:05 WBC (4.8-10.8) K/ul RBC (4.63-6.08) M/uL Hgb (14.0-18.0) g/dl Hct (40.1-51.0) % MCV (80.0-100.0) fL MCH (25.0-34.0) pg MCHC (32.0-36.0) g/dL RDW Std Deviation (36.4-46.3) fL RDW Coeff of Leo (11.5-14.5) % Plt Count (130-400) K/uL MPV (9.4-12.4) fL Immature Gran % (Auto) % Neut % (Auto) % Lymph % (Auto) % [place] % (Auto) % Eos % (Auto) % Baso % (Auto) % Neut # (Auto) (1.4-6.5) K/uL Lymph # (Auto) (1.2-3.4) K/uL [place] # (Auto) (0.24-0.82) K/uL Eos # (Auto) (0-0.50) K/uL Baso # (Auto) (0-0.2) K/uL Immature Gran # (Auto) (0.00-0.02) K/uL PT 11.1 (9.0-12.0) Seconds INR 1.0 (0.9-1.1) APTT 27.5 (21.0-31.0) Seconds PTT Ratio 1.0 Sodium (136-145) mmol/L Potassium (3.5-5.1) mmol/L Chloride (98-107) mmol/L Carbon Dioxide (21-32) mmol/L Anion Gap (3-11) BUN (6-23) mg/dl Creatinine (0.6-1.4) mg/dl Est Cr Clr Drug Dosing Est GFR ( Amer) ml/min Est GFR (Non-Af Amer) ml/min BUN/Creatinine Ratio (10-20) Glucose (70-99(Fasting)) mg/dl Calcium (8.5-10.1) mg/dl Magnesium (1.7-2.4) mg/dl Total Bilirubin (0.2-1.0) mg/dl AST (13-39) U/L ALT (7-52) U/L Alkaline Phosphatase (34-104) U/L Troponin I High Sens (0-20) pg/ml C-Reactive Protein (0-0.5) mg/dl Total Protein (6.0-8.3) gm/dl Albumin (3.4-5.0) gm/dl Globulin (2.5-4.0) gm/dl Albumin/Globulin Ratio (0.9-2) Procalcitonin (0-0.5) ng/ml Urine Color Urine Appearance (Clear) Urine pH (4.5-7.5) Ur Specific [place] (1.000-1.030) Urine Protein (Negative) Urine Glucose (UA) (Negative) Urine Ketones (Negative) Urine Blood (Negative) Urine Nitrite (Negative) Urine Bilirubin (Negative) Urine Urobilinogen (Negative) Ur Leukocyte Esterase (Negative) Nasal Screen MRSA (PCR) (Negative) SARS-CoV-2, RNA, NAAT (NEGATIVE) Staphylococcus sp PCR (NotDetected) Staph aureus (PCR) (NotDetected) mecA/C & MREJ Resist Gene (NotDetected) Bld Cult ID Panel PCR (NotDetected) Diagnostic Findings US soft tissue head and neck CLINICAL HISTORY: limited to post R scalp, ?abscess. Left posterior scalp swelling. COMPARISON STUDY: Head CT 05/12/2019. FINDINGS: Real-time sonographic imaging of the posterior scalp was performed with service liaison representative images submitted. There is a subcutaneous ill-defined hypoechoic collection measuring 34 x 19 x 8 mm. There is increased color flow surrounding this area. There is a small tract that extends to the skin surface. Therefore, this favors a small abscess. Follow-up can be performed to ensure resolution and to exclude an infiltrating lesion. IMPRESSION: There is a subcutaneous ill-defined hypoechoic collection measuring 34 x 19 x 8 a small tract that extends to the skin surface. This favors a small abscess. Follow-up can be performed to ensure resolution and to exclude an infiltrating lesion.
[2021-10-11] MEDS: ceFAZolin 2000MG 2,000 MG/15 ML SYR IV SCH ×2 (13:50→21:35)
[2021-10-11] MEDS ORDERED: cefTRIAXone SODIUM 2,000 MG in DEXTROSE 5% 50 ML IV SCH (14:00)
[2021-10-11] MEDS ORDERED: LIDOCAINE 1%/EPINEPHRINE 1:100,000 50 ML VIAL INFIL ONE (14:45)
[2021-10-11] MEDS ORDERED: LIDOCAINE 1% LOCAL 20 ML VIAL ONE (14:46)
[2021-10-11] MEDS ORDERED: cefTRIAXone SODIUM 1,000 MG in DEXTROSE 5% 50 ML IV SCH (15:15)
--- NOTE | 2021-10-11 15:18 | Operative Report ---
Post Operative Report Pre & Post Diagnosis Preop diagnosis: Scalp abscess Postop diagnosis: Scalp abscess I identified the patient and participated in the time-out.: Yes Procedure Incision and drainage of scalp abscess Surgeon Jamar Manuel MD [employer] Mill And Lathe Operator IVA Soriano Estimated Blood Loss 2 Findings Consistent with Post-Op Diagnosis Specimens None Drains None Anesthesia Type Local Complications No immediate complications Indications Scalp abscess Description of Procedure The patient was in his room on the stretcher. After timeout was performed, the area was prepped and draped in the normal sterile fashion. Local anesthetic was injected into and around the area of the abscess. 11 blade scalpel was used to incise the abscess in a cruciate fashion. A moderate amount of purulent fluid was removed. The wound was copiously irrigated. Dressings were applied. He tolerated it without complication. I attest to the content of the Intraoperative Record and any orders documented therein. Any exceptions are noted below.
[2021-10-11] MEDS ORDERED: LIDOCAINE 2% LOCAL 20 ML VIAL INFIL ONE (15:30)
--- NOTE | 2021-10-11 20:10 | XRay Report ---
ORBIT RADIOGRAPHS 3 VIEWS HISTORY: pre-MRI screening. COMPARISON: Head CT May 12, 2019. FINDINGS: There are no radiopaque foreign bodies identified within the orbits. IMPRESSION: No radiopaque foreign bodies identified within the orbits. ACT 112: Negative or not required by law. Electronically signed by: Jose French M.D. 10/11/2021 8:09 PM
--- NOTE | 2021-10-11 20:25 | XRay Report ---
KUB CLINICAL HISTORY: screening for MRI COMPARISON STUDY: None. FINDINGS: Surgical staple line within the right abdomen is noted. There is no contraindication to MRI within the abdomen or pelvis. Pelvic calcifications likely reflect phleboliths. There is moderate va scular calcification. Elevation of the right hemidiaphragm is incidentally noted. No evidence for a bowel obstruction. IMPRESSION: No contraindication to MRI within the abdomen or pelvis. ACT 112: Negative or not required by law. Electronically signed by: Jose French M.D. 10/11/2021 8:24 PM
[2021-10-11] MEDS ORDERED: GADOBUTROL 65ML VIAL IV ONE (20:48)
--- NOTE | 2021-10-11 21:24 | Magnetic Resonance Report ---
MR orbit wo/w con CLINICAL HISTORY: Right eye vision changes. COMPARISON STUDY: Head CT May 12, 2019. TECHNIQUE: Utilizing a 1.5 Rosi magnet and dedicated coil, multiplanar, multiecho imaging of the orb its was performed pre and postcontrast administration. Thin cut imaging was performed Intravenous inj ection of 7.5 cc of Gadavist was uneventful. FINDINGS: There are no foci of restricted diffusion to suggest acute infarct. No acute intracranial h emorrhage, midline shift or mass effect is present. Ventricular dilatation is unchanged since head CT of May 12, 2019. This is due to atrophy. No extra axial collections are present. Basal cisterns ar e patent. White matter T2 hyperintense foci favor small vessel disease. Left parietal scalp soft tiss ue swelling is noted. No abnormality of the orbits is identified on this exam. Specifically, there is no orbital mass or fluid collection. Extraocular muscles are unremarkable. No abnormal enhancement w ithin the orbits is identified. Minimal ethmoid sinus mucosal thickening is present. No evidence for acute sinusitis. Soft tissues adjacent to the orbits are unremarkable. Calvarial signal is normal. IMPRESSION: 1. No acute intracranial findings. 2. No orbital abnormality identified. 3. Left frontal scalp soft tissue swelling and suspected postsurgical change. 4. Moderate atrophy and extensive small vessel disease. ACT 112: Negative or not required by law. Electronically signed by: Jose French M.D. 10/11/2021 9:22 PM
[2021-10-11] MEDS: TAMSULOSIN HCL 0.4 MG CAP PO SCH (21:35)
[2021-10-12] MEDS: ceFAZolin 2000MG 2,000 MG/15 ML SYR IV SCH ×3 (04:10→21:37)
[2021-10-12] MEDS: DONEPEZIL HCL 10 MG TAB PO SCH (07:26)
[2021-10-12] MEDS: MIRABEGRON ER 25 MG TAB PO SCH (07:26)
[2021-10-12] MEDS: HEPARIN SOD 5,000 UNIT/0.5 ML VIAL SQ SCH ×2 (08:12→21:37)
[2021-10-12 08:55] LABS: Basophils # (auto) 0.05 K/uL (0-0.2); Basophils % (auto) 0.4 %; Eosinophils # (auto) 0.41 K/uL (0-0.50); Eosinophils % (auto) 3.7 %; Hematocrit (blood only) 35.5 % (40.1-51.0); Hemoglobin 12.2 g/dl (14.0-18.0); Immature Granulocytes % (auto) 0.9 %; Lymphocytes # (auto) 1.38 K/uL (1.2-3.4); Lymphocytes % (auto) 12.4 %; Mean Corpuscular Hemoglobin 29.8 pg (25.0-34.0); Mean Corpuscular Hgb Conc 34.4 g/dL (32.0-36.0); Mean Corpuscular Volume 86.8 fL (80.0-100.0); Mean Platelet Volume 9.7 fL (9.4-12.4); Monocytes # (auto) 1.48 K/uL (0.24-0.82); Monocytes % (auto) 13.3 %; Neutrophils # (auto) 7.74 K/uL (1.4-6.5); Neutrophils % (auto) 69.3 %; Platelet Count 386 K/uL (130-400); RDW Coefficient of Variation 14.4 % (11.5-14.5); RDW Standard Deviation 45.9 fL (36.4-46.3); Red Blood Count 4.09 M/uL (4.63-6.08); White Blood Count 11.16 K/ul (4.8-10.8)
[2021-10-12 09:54] LABS: BUN Creatinine Ratio 16.3 (10-20); Calcium 8.3 mg/dl (8.5-10.1); Creatinine Clr Calc Pharmacy 50.1 ml/min; Est GFR (African American) 74.5 ml/min; Est GFR (Non-African American) 64.3 ml/min; Potassium 3.1 mmol/L (3.5-5.1)
[2021-10-12] MEDS ORDERED: POTASSIUM CHLORIDE CRTAB 20 MEQ TABCR PO STA (10:51)
[2021-10-12] MEDS ORDERED: POTASSIUM CHLORIDE / WTR 10 MEQ/100 ML PLCT IV ONE (11:00)
--- NOTE | 2021-10-12 13:57 | Anesthesiology Consultation ---
Date of Service October 12, 2021 Assessment & Plan (1) Encounter for pre-operative examination: Chart Review Chart Review: entry level recruiter initiated History Surgery Operation Date: 10/13/21 07:15 Proposed Procedures p Transesophageal Echo w/Anesthesia - Christian Garner MD Height/Weight Height: 6 ft 2 in Weight: 70.76 kg Allergies Allergy/AdvReac Type Severity Reaction Status Date / Time sulfamethoxazole AdvReac Unknown Unknown Unverified 10/11/21 07:13 [From Bactrim] trimethoprim [From Bactrim] AdvReac Unknown Unknown Unverified 10/11/21 07:13 Medications Home Medications Medication Instructions Recorded Confirmed Last Taken cyanocobalamin (vitamin B-12) 1,000 mcg IM Q4WK 05/12/19 05/12/19 Unknown 1,000 mcg/mL injection kit erythromycin 5 mg/gram (0.5 %) eye 1 applic OPL TID 05/12/19 05/12/19 Unknown ointment finasteride 5 mg tablet 5 mg PO DAILY 05/12/19 05/12/19 Unknown polyvinyl alcohol 1.4 % eye drops 1 drp OPB QID 05/12/19 05/12/19 Unknown (Artificial Tears (polyvinyl alcohol)) prednisolone acetate 1 % eye 1 drp ophthalmic (eye) UD 05/12/19 05/12/19 Unknown drops,suspension (Pred Forte) mirabegron 25 mg tablet,extended 25 mg PO DAILY #30 tabs 07/12/20 07/12/20 Unknown release 24 hr (Myrbetriq) fluconazole 150 mg tablet 150 mg PO .weekly 1 dose #8 tabs 10/09/21 Unknown ketoconazole 2 % shampoo See Rx Instructions .Route 10/09/21 Unknown .COMPLEX #120 mL Active Medications Generic Name Dose Route Start Last Admin Trade Name Freq PRN Reason Stop Dose Admin Donepezil HCl 10 mg 10/11/21 09:00 10/12/21 07:26 Donepezil Hcl 10 Mg Tab PO 11/10/21 08:59 10 mg QAM BRIAN Administration Heparin Sodium (Porcine) 5,000 units 10/10/21 21:00 10/12/21 08:12 Heparin Sod 5,000 Unit/0.5 Ml Vial SQ 11/09/21 20:59 5,000 units Q12 BRIAN Administration Cefazolin Sodium 2,000 mg in 15 mls @ 3.75 mls/min 10/11/21 13:00 10/12/21 04 :10 Ancef 2000mg IV 10/25/21 12:59 3.75 mls/min Q8H BRIAN Administration Mirabegron 25 mg 10/11/21 09:00 10/12/21 07:26 Mirabegron Er 25 Mg Tab PO 11/10/21 08:59 25 mg DAILY BRIAN Administration Tamsulosin HCl 0.4 mg 10/10/21 21:00 10/11/21 21:35 Tamsulosin Hcl 0.4 Mg Cap PO 11/09/21 20:59 0.4 mg HS BRIAN Administration Past Medical History Medical History (Updated 10/12/21 @ 13:56 by Loy Valderrama DO) Alzheimer disease B12 deficiency Dementia Hearing loss No pertinent family history Schizophrenia Past Surgical History Surgical History History of cataract surgery No pertinent past surgical history Social History Smoking Status: Former smoker tobacco type: cigars Smoking cigarettes per day: occasionally Do You Dip or Chew Tobacco: No Hx Alcohol Use: No Hx Substance Use: No Physical Exam Vital Signs Last Vital Signs Temp 98.6 F 10/12/21 06:42 Pulse 85 10/12/21 06:42 Resp 20 10/12/21 06:42 BP 149/87 H 10/12/21 06:42 Pulse Ox 97 10/12/21 06:42 O2 Del Method 10/12/21 06:42 Testing Laboratory Results 10/12/21 08:16 10/12/21 08:16 PT 11.1 Seconds (9.0-12.0) 10/10/21 13:05 INR 1.0 (0.9-1.1) 10/10/21 13:05 APTT 27.5 Seconds (21.0-31.0) 10/10/21 13:05 Urine Color Yellow 10/11/21 08:20 Urine Appearance Clear (Clear) 10/11/21 08:20 Urine pH 5.5 (4.5-7.5) 10/11/21 08:20 Ur Specific [place] 1.018 (1.000-1.030) 10/11/21 08:20 Urine Protein Negative (Negative) 10/11/21 08:20 Urine Glucose (UA) Negative (Negative) 10/11/21 08:20 Urine Ketones Trace (Negative) H 10/11/21 08:20 Urine Nitrite Negative (Negative) 10/11/21 08:20 Ur Leukocyte Esterase Negative (Negative) 10/11/21 08:20 10/10/21 14:05 Aerobic Blood Culture - Preliminary Blood Staphylococcus species Anaerobic Blood Culture - Preliminary Staphylococcus species 10/10/21 13:05 Aerobic Blood Culture - Preliminary Blood Staphylococcus species Anaerobic Blood Culture - Preliminary Staphylococcus species Electrocardiogram Date: 10/10/21 Normal sinus rhythm with sinus arrhythmia, rate 91 bpm Right bundle branch block Abnormal ECG No previous ECGs available Confirmed by Christian Garner ([id number]) on 10/11/2021 9:02:59 AM Chest X-Ray Date: 10/10/21 Findings: + NAD Echocardiogram Date: 10/11/21 No prior study for comparison. The study was technically limited. LV is normal in structure and function. EF 65-70% RV is mildly dilated. No obvious valvular disease on technically limited Doppler. No obvious vegetation on technically limited study, if furthur exculsion of vegetation is merited, consider KAMILLA.
--- NOTE | 2021-10-12 14:37 | Hospitalist Progress Note ---
Date of Service October 12, 2021 Assessment & Plan (1) Cellulitis: Plan: Cellulitis with abscess formation of scalp that failed outpatient treatment - Blood cultures positive w/ growth of staph, MSSA via biofire c/w bacteremia - D/c Rocephin/Vanco and changed to Ancef 2g IV q8h on 10/11 - Consult general surgery for I&D, performed bedside by IVA, tolerated well, no issues - Leukocytosis nearly resolved (2) Bacteremia: Plan: - MSSA, abx as above - Echocardiogram completed, although no evidence of vegetation, study quality not great - Repeat blood cultures 10/12, if negative will require midline insertion and total of 14 days of IV abx - d/w cardiology quality of echo and c/f endocarditis, Dr. Garner to see and will perform KAMILLA on 10/13 - ID consult placed, appreciate input (3) Cough: Plan: - Pt c/o increased cough and feeling that he is developing a cold - Obtain CXR portable (although lungs are clear on exam) - Repeat COVID swab (4) Hypokalemia: Plan: - Replacement ordered (5) Alzheimer disease: Plan: - Continue Aricept and Namenda (6) BPH w urinary obs/LUTS: Plan: - Continue Flomax - Bladder scan and cath as needed Plan Interventions as outlined above. Repeat blood cultures ordered for today, will need to ensure that these have cleared prior to placing a midline which will only be acceptable if KAMILLA is negative for vegetation. If vegetation noted, will require longer course of IV abx. ID has been consulted, await recommendations. Spoke w/ CM, they can accommodate IV abx but script will need to be faxed prior to 12pm so that the long-term can obtain the abx by the evening. Plan to be d/w Dr. Jun Manuel. Admission and Anticipated Discharge Date Admission Date: October 11, 2021 Subjective Patient seen on daily rounds this morning. He states he has a slight cough and feels that he's "catching a cold." Denies fever/chills, chest pain or dyspnea. Underwent bedside I&D of scalp abscess by surgery IVA on 10/11. Review of Systems Review of Systems: All systems reviewed and are unremarkable except as noted in HPI and below. Denies fever, chills, fatigue, headache, nasal congestion, sore throat, chest pain, shortness of breath, palpitations, orthopnea, PND, abdominal pain, n/v/d, constipation, dysuria, hematuria, frequency, back pain, joint pain or swelling, easy bruising or bleeding. Physical Exam Physical Exam: GENERAL: 85 yo Well-developed, well-nourished elderly WM. NAD. LUNGS: Clear to auscultation bilaterally. No W/R/R. CARDIOVASCULAR: Regular rate and rhythm. ABDOMEN: Soft, non-tender and non-distended. BS normoactive x 4 quad. EXTREMITIES: No edema. Non-tender. Peripheral pulses +2/4. NEUROLOGIC: A&O x3. Nonfocal PSYCHIATRIC: Pleasant, Cooperative. Appropriate mood and affect. SKIN: Warm, dry, intact. Erythema noted over L side of scalp and around his L ear. Abscess site w/ dressing in place. Results & Data Results & Data ([facility]) Vital Signs (Past 12 Hours) Vital Signs Temp Pulse Resp BP Pulse Ox O2 Del Method 10/12/21 06:42 37 C 85 20 149/87 H 97 Room Air Laboratory Results 10/12/21 08:16 10/12/21 08:16 PG Care Time/CCT Total # of Minutes Spent Total Time Spent with Patient: Total time spent is greater than 50% in coordination of care (as documented) at patient's floor/unit and/or counseling patient: Coding Level of Care Code 27464 Subseq Hosp Care Lvl 3 Diagnoses Cellulitis L03.90 Bacteremia R78.81 Cough R05.9 Hypokalemia E87.6 Alzheimer disease G30.9; F02.80 BPH w urinary obs/LUTS N40.1; N13.8
--- NOTE | 2021-10-12 14:50 | Surgery Progress Note ---
Date of Service October 12, 2021 Assessment & Plan (1) Abscess of scalp: (2) Cellulitis: (3) Bacteremia: Plan 85 year-old male with scalp abscess, cellulitis, and bacteremia with failed outpatient treatment with oral antibiotics and a dose of IV clindamycin. Exam consistent with scalp abscess and cellulitis. POD # 1 s/p bedside I&D - afebrile, improvement of leukocytosis to 11k - mildly tender today Plan: Continue daily and prn dressing changes with optifoam continue IV abx Continue medical management Discussed with Dr. Manuel who agrees with above. Admission and Anticipated Discharge Date Admission Date: October 11, 2021 Subjective no complaints of pain on the scalp feeling better since procedure yesterday limited ROS given patients dementia Physical Exam Constitutional: WD/WN, vitals as above no acute distress and not ill appearing Skin: Area of scalp incision and drainage without significant purulence. only mildly tender to palpation. cellulitis still present but stable Psychiatric: Orientation: alert; + not oriented x 3, + not oriented to place and + not oriented to time Results & Data ([facility]) Vital Signs (Past 12 Hours) Vital Signs Temp Pulse Resp BP Pulse Ox O2 Del Method 10/12/21 06:42 37 C 85 20 149/87 H 97 Room Air Laboratory Results 10/12/21 10/12/21 Range/Units 08:16 08:16 WBC 11.16 H (4.8-10.8) K/ul RBC 4.09 L (4.63-6.08) M/uL Hgb 12.2 L (14.0-18.0) g/dl Hct 35.5 L (40.1-51.0) % MCV 86.8 (80.0-100.0) fL MCH 29.8 (25.0-34.0) pg MCHC 34.4 (32.0-36.0) g/dL RDW Std Deviation 45.9 (36.4-46.3) fL RDW Coeff of Leo 14.4 (11.5-14.5) % Plt Count 386 (130-400) K/uL MPV 9.7 (9.4-12.4) fL Immature Gran % (Auto) 0.9 % Neut % (Auto) 69.3 % Lymph % (Auto) 12.4 % [place] % (Auto) 13.3 % Eos % (Auto) 3.7 % Baso % (Auto) 0.4 % Neut # (Auto) 7.74 H (1.4-6.5) K/uL Lymph # (Auto) 1.38 (1.2-3.4) K/uL [place] # (Auto) 1.48 H (0.24-0.82) K/uL Eos # (Auto) 0.41 (0-0.50) K/uL Baso # (Auto) 0.05 (0-0.2) K/uL Immature Gran # (Auto) 0.10 H (0.00-0.02) K/uL Sodium 138 (136-145) mmol/L Potassium 3.1 L (3.5-5.1) mmol/L Chloride 105 (98-107) mmol/L Carbon Dioxide 28 (21-32) mmol/L Anion Gap 5 (3-11) BUN 17 (6-23) mg/dl Creatinine 1.04 (0.6-1.4) mg/dl Est Cr Clr Drug Dosing 50.1 ml/min Est GFR ( Amer) 74.5 ml/min Est GFR (Non-Af Amer) 64.3 ml/min BUN/Creatinine Ratio 16.3 (10-20) Glucose 96 (70-99(Fasting)) mg/dl Calcium 8.3 L (8.5-10.1) mg/dl
--- NOTE | 2021-10-12 16:06 | XRay Report ---
XR chest 1V portable HISTORY: cough COMPARISON: Chest 10/10/2021. FINDINGS: Slightly rotated study. There is elevation of the right hemidiaphragm. The No focal lung co nsolidations to suggest pneumonia. No evidence for pulmonary edema. The heart is normal in size. No p leural effusions. No pneumothorax. IMPRESSION: 1. No focal lung consolidations to suggest pneumonia. 2. Chronic elevation of the right hemidiaphragm. ACT 112: Negative or not required by law. Electronically signed by: Tam Child M.D. 10/12/2021 4:05 PM
[2021-10-12] MEDS: GENTAMICIN SULFATE 0.3% OP SOLN 5 ML BTL OPR SCH ×3 (16:13→21:37)
[2021-10-12] MEDS: TAMSULOSIN HCL 0.4 MG CAP PO SCH (21:37)
[2021-10-12] MEDS: ACETAMINOPHEN 325 MG TAB PO PRN (23:31)
[2021-10-13] MEDS: GENTAMICIN SULFATE 0.3% OP SOLN 5 ML BTL OPR SCH ×6 (03:37→23:13)
[2021-10-13] MEDS: ceFAZolin 2000MG 2,000 MG/15 ML SYR IV SCH ×3 (05:47→20:32)
[2021-10-13] MEDS ORDERED: BENZOCAINE/TETRACAIN/BUTAM 50 APPLN/5 GM CAN EXT ONE (06:55)
[2021-10-13] MEDS ORDERED: LIDOCAINE 2% 2 ML VIAL/AMP(20MG/ML) INFIL ONE (07:11)
[2021-10-13] MEDS ORDERED: PROPOFOL IV EMULSION 10 MG/ML 20 ML VIAL IV ONE (07:11)
--- NOTE | 2021-10-13 08:28 | XCELERA ---
[id number]
[2021-10-13] MEDS: HEPARIN SOD 5,000 UNIT/0.5 ML VIAL SQ SCH ×2 (09:28→20:33)
[2021-10-13] MEDS: DONEPEZIL HCL 10 MG TAB PO SCH (09:28)
[2021-10-13] MEDS: MIRABEGRON ER 25 MG TAB PO SCH (09:28)
--- NOTE | 2021-10-13 09:39 | Anesthesiology Progress Note ---
Date of Service October 13, 2021 Anesthesia Post Procedure Vital Signs Vital Signs: Temp Pulse Pulse Resp BP BP Pulse Ox 10/13/21 09:24 36.9 C 75 16 140/86 95 10/13/21 08:14 18 116/82 96 10/13/21 08:22 87 18 122/75 97 10/13/21 08:00 88 16 111/66 95 10/13/21 07:46 82 16 94/60 L 98 10/13/21 07:12 79 18 132/81 97 10/13/21 06:36 36.5 C 69 18 128/78 95 10/12/21 22:22 37.4 C 90 18 167/90 H 98 10/12/21 16:15 36.8 C 86 18 167/91 H 97 O2 Del Method 10/13/21 09:24 Room Air 10/13/21 08:14 Room Air 10/13/21 08:22 Room Air 10/13/21 08:00 Room Air 10/13/21 07:46 Room Air 10/13/21 07:12 Room Air 10/13/21 06:36 Room Air 10/12/21 22:22 Room Air 10/12/21 16:15 Room Air Pain Intensity Left Head: Pain Intensity: 2 Transfer of Care Handoff Completed per policy Notes Mental Status: alert / awake / arousable and participated in evaluation Patient Amnestic to Procedure: Yes Nausea / Vomiting: adequately controlled Pain: adequately controlled Airway Patency, RR, SpO2: stable & adequate BP & HR: stable & adequate Hydration State: stable & adequate Anesthetic Complications: no major complications apparent
--- NOTE | 2021-10-13 10:51 | Cardiology Consultation ---
Date of Consultation October 13, 2021 History of Present Illness Reason for Consultation: KAMILLA Requesting Physician: Mikel Manuel MD Attending Physician: Mikel Manuel MD History of Present Illness Formal consult not performed. Patient evaluated and underwent transesophageal echocardiogram to rule out endocarditis as a source for bacteremia. Study showed no vegetation or other major pathology. See transesophageal echocardiogram report for details. Allergies Allergy/AdvReac Type Severity Reaction Status Date / Time sulfamethoxazole AdvReac Unknown Unknown Unverified 10/11/21 07:13 [From Bactrim] trimethoprim [From Bactrim] AdvReac Unknown Unknown Unverified 10/11/21 07:13 Home Medications Medication Instructions Recorded Confirmed Type cyanocobalamin (vitamin B-12) 1,000 mcg IM Q4WK 05/12/19 05/12/19 History 1,000 mcg/mL injection kit erythromycin 5 mg/gram (0.5 %) eye 1 applic OPL TID 05/12/19 05/12/19 History ointment finasteride 5 mg tablet 5 mg PO DAILY 05/12/19 05/12/19 History polyvinyl alcohol 1.4 % eye drops 1 drp OPB QID 05/12/19 05/12/19 History (Artificial Tears (polyvinyl alcohol)) prednisolone acetate 1 % eye 1 drp ophthalmic (eye) UD 05/12/19 05/12/19 History drops,suspension (Pred Forte) mirabegron 25 mg tablet,extended 25 mg PO DAILY #30 tabs 07/12/20 07/12/20 Rx release 24 hr (Myrbetriq) fluconazole 150 mg tablet 150 mg PO .weekly 1 dose #8 tabs 10/09/21 Rx ketoconazole 2 % shampoo See Rx Instructions .Route 10/09/21 Rx .COMPLEX #120 mL Patient History Medical History (Updated 10/12/21 @ 14:49 by Vanessa Nicholson PA-C) Alzheimer disease B12 deficiency Dementia Hearing loss No pertinent family history Schizophrenia Surgical History History of cataract surgery No pertinent past surgical history Social History (System 10/11/21 @ 07:13 by Nita Manuel) Smoking Status: Former smoker Tobacco Type: Pipe and Cigars Cigarettes Per Day: occasionally; Second Hand Exposure: No; Do You Dip or Chew Tobacco: No; Tobacco Cessation Education Requested by Patient: No Hx Alcohol Use: No Hx Substance Use: No Preferred Language: Kyrgyz Communication Ability: Impaired Political Director Required: No Beliefs That Will Affect Care: None Current Living Situation: Other Current Living Situation Comment: Skilled Nursing Other Information That Helps Us Care for You: No Feels Safe at Home: Yes Safety Concerns: Feels Safe At This Time Assistive Devices: None Results & Data ([facility]) Vital Signs (Past 12 Hours) Vital Signs Temp Pulse Pulse Resp BP BP Pulse Ox 10/13/21 09:24 98.4 F 75 16 140/86 95 10/13/21 08:14 18 116/82 96 10/13/21 08:22 87 18 122/75 97 10/13/21 08:00 88 16 111/66 95 10/13/21 07:46 82 16 94/60 L 98 10/13/21 07:12 79 18 132/81 97 10/13/21 06:36 97.7 F 69 18 128/78 95 O2 Del Method 10/13/21 09:24 Room Air 10/13/21 08:14 Room Air 10/13/21 08:22 Room Air 10/13/21 08:00 Room Air 10/13/21 07:46 Room Air 10/13/21 07:12 Room Air 10/13/21 06:36 Room Air PG Care Time/CCT Total # of Minutes Spent Total Time Spent with Patient: Total time spent is greater than 50% in coordination of care (as documented) at patient's floor/unit and/or counseling patient: Coding Level of Care Code None Comment Evaluated for and underwent transesophageal echocardiogram.
[2021-10-13 11:47] LABS: Basophils # (auto) 0.05 K/uL (0-0.2); Basophils % (auto) 0.4 %; Eosinophils # (auto) 0.29 K/uL (0-0.50); Eosinophils % (auto) 2.3 %; Hemoglobin 12.7 g/dl (14.0-18.0); Immature Granulocytes # (auto) 0.12 K/uL (0.00-0.02); Lymphocytes # (auto) 1.72 K/uL (1.2-3.4); Lymphocytes % (auto) 13.8 %; Mean Corpuscular Hemoglobin 29.6 pg (25.0-34.0); Mean Corpuscular Hgb Conc 34.3 g/dL (32.0-36.0); Mean Corpuscular Volume 86.2 fL (80.0-100.0); Mean Platelet Volume 9.6 fL (9.4-12.4); Monocytes # (auto) 1.48 K/uL (0.24-0.82); Monocytes % (auto) 11.9 %; Neutrophils # (auto) 8.76 K/uL (1.4-6.5); Neutrophils % (auto) 70.6 %; Platelet Count 460 K/uL (130-400); RDW Coefficient of Variation 14.4 % (11.5-14.5); RDW Standard Deviation 45.5 fL (36.4-46.3); Red Blood Count 4.29 M/uL (4.63-6.08); White Blood Count 12.42 K/ul (4.8-10.8)
[2021-10-13 11:57] LABS: BUN Creatinine Ratio 16.7 (10-20); Calcium 8.6 mg/dl (8.5-10.1); Creatinine Clr Calc Pharmacy 51.1 ml/min; Est GFR (African American) 76.2 ml/min; Est GFR (Non-African American) 65.8 ml/min; Potassium 3.5 mmol/L (3.5-5.1)
--- NOTE | 2021-10-13 14:43 | Ultrasound Report ---
US soft tissue head and neck CLINICAL HISTORY: Swelling Behind left superior ear - I think abscess is there. COMPARISON STUDY: Neck ultrasound 10/11/2021 FINDINGS: Real-time sonographic imaging of the left postauricular scalp was performed with representa tive images submitted. No mass, fluid collections, lymphadenopathy identified. Mild soft tissue thick ening. No increased color flow. Small vascular structures appear patent. IMPRESSION: Mild soft tissue thickening within the left postauricular scalp. No fluid collections. ACT 112: Negative or not required by law. Electronically signed by: Tam Child M.D. 10/13/2021 2:41 PM
--- NOTE | 2021-10-13 14:48 | Hospitalist Progress Note ---
Date of Service October 13, 2021 Assessment & Plan (1) Cellulitis: Plan: Cellulitis with abscess formation of scalp that failed outpatient treatment. - Blood cultures positive w/ growth of staph, MSSA via biofire c/w bacteremia - D/c Rocephin/Vanco and changed to Ancef 2g IV q8h on 10/11 - Consult general surgery for I&D, performed bedside by IVA, tolerated well, no issues - Leukocytosis lower than admission, but stable from yesterday. - Some concern for new abscess behind left ear. U/s ordered on 10/13. Official read not done yet, but on my review, maybe a pocket of fluid 2.5mm x 10 mm. Likely too small to drain, but will await final read by radiology. (2) Bacteremia: Plan: - MSSA, abx as above - Echocardiogram completed, although no evidence of vegetation, study quality not great - Repeat blood cultures 10/12, if negative will require midline insertion and total of 14 days of IV abx - KAMILLA on 10/13 without vegetation. - ID consult placed, appreciate input (3) Cough: Plan: - Pt c/o increased cough and feeling that he is developing a cold on 10/12. CXR on 10/12 without consolidation. Repeat Covid swab negative. - Does not report cough to me on 10/13 (4) Hypokalemia: Plan: - Replacement ordered (5) Alzheimer disease: Plan: Patient's baseline appears to be fairly advanced. See "Subjective." - Continue Aricept and Namenda (6) BPH w urinary obs/LUTS: Plan: - Continue Flomax - Bladder scan and cath as needed Admission and Anticipated Discharge Date Admission Date: October 11, 2021 Subjective Notes some pain behind his left ear today. Reports it is more swollen than in the last few days. Then starts to discuss his [employer] truck and how he parked his car in the parking lot and keeps asking the guards if they will take him there. He is AAOx2 (self and place), but does not even attempt to guess year. Reports no fevers/chills, chest pain, shortness of breath, abdominal pain, nausea, or vomiting. Physical Exam Constitutional: WD/WN, vitals as above Eyes: EOM intact bilaterally; no conjunctival abnormality ENMT: external ear and nose normal, oropharynx normal Ears: + external ear abnormality (Swelling and some fluctuance behind the left ear.) Neck: trachea midline, no thyromegaly normal visual inspection Respiratory: normal respiratory effort, lungs clear to auscultation no respiratory distress Cardiovascular: RRR, no murmur, no edema Gastrointestinal (Abdomen): Inspection/Auscultation: abdomen normal to inspection; abdomen not distended Musculoskeletal: no cyanosis or clubbing, extremities motor strength 5/5 Skin: no rashes, warm and dry Neurologic: moves all extremities and awake Psychiatric: Orientation: alert, oriented to person and cooperative Results & Data Results & Data ([facility]) Vital Signs (Past 12 Hours) Vital Signs Temp Pulse Pulse Resp BP BP Pulse Ox 10/13/21 09:24 36.9 C 75 16 140/86 95 10/13/21 08:14 18 116/82 96 10/13/21 08:22 87 18 122/75 97 10/13/21 08:00 88 16 111/66 95 10/13/21 07:46 82 16 94/60 L 98 10/13/21 07:12 79 18 132/81 97 10/13/21 06:36 36.5 C 69 18 128/78 95 O2 Del Method 10/13/21 09:24 Room Air 10/13/21 08:14 Room Air 10/13/21 08:22 Room Air 10/13/21 08:00 Room Air 10/13/21 07:46 Room Air 10/13/21 07:12 Room Air 10/13/21 06:36 Room Air PG Care Time/CCT Total # of Minutes Spent Total Time Spent with Patient: Total time spent is greater than 50% in coordination of care (as documented) at patient's floor/unit and/or counseling patient: Coding Level of Care Code 16924 Subseq Hosp Care Lvl 2 Diagnoses Cellulitis L03.90 Bacteremia R78.81 Cough R05.9 Hypokalemia E87.6 Alzheimer disease G30.9; F02.80 BPH w urinary obs/LUTS N40.1; N13.8
[2021-10-13 19:25] LABS: A calco-baum cmplx NotReported Not Detected (NotDetected); Bact fragilis Not Reported Not Detected (NotDetected); C auris Not Reported Not Detected (NotDetected); Calbicans Not Reported Not Detected (NotDetected); Candida glabrata Not Reported Not Detected (NotDetected); Candida krusei Not Reported Not Detected (NotDetected); Cneoformans/gatti Not Reported Not Detected (NotDetected); Cparapsilosis Not Reported Not Detected (NotDetected); Ctropicalis Not Reported Not Detected (NotDetected); E cloacae compx Not Reported Not Detected (NotDetected); Efaecalis Not Reported Not Detected (NotDetected); Efaecium Not Reported Not Detected (NotDetected); Enterobacterales Not Reported Not Detected (NotDetected); Escherichia coli Not Reported Not Detected (NotDetected); H influenzae Not Reported Not Detected (NotDetected); K aerogenes Not Reported Not Detected (NotDetected); Koxytoca Not Reported Not Detected (NotDetected); Kpneumoniae grp Not Reported Not Detected (NotDetected); Lmonocyt Not Reported Not Detected (NotDetected); N meningitidis Not Reported Not Detected (NotDetected); P aeruginosa Not Reported Not Detected (NotDetected); Proteus spp Not Reported Not Detected (NotDetected); Salmonella spp Not Reported Not Detected (NotDetected); Smarcescens Not Reported Not Detected (NotDetected); Staph lugdunensis Not Reported Not Detected (NotDetected); Staph spp. Not Reported DETECTED (NotDetected); Staphaureus Not Reported DETECTED (NotDetected); Staphepi Not Reported Not Detected (NotDetected); Staphylococcus spp. DETECTED (NotDetected); Stenmaltophilia Not Reported Not Detected (NotDetected); Strep agal(GrpB) Not Reported Not Detected (NotDetected); Strep pneum Not Reported Not Detected (NotDetected); Strep pyog (GrpA) Not Reported Not Detected (NotDetected); Strep spp Not Reported Not Detected (NotDetected); mecAC+MREJ Resistant Gene MRSA Not Detected (NotDetected)
[2021-10-13] MEDS: TAMSULOSIN HCL 0.4 MG CAP PO SCH (20:33)
[2021-10-14] MEDS: ceFAZolin 2000MG 2,000 MG/15 ML SYR IV SCH ×3 (04:23→21:08)
[2021-10-14] MEDS: GENTAMICIN SULFATE 0.3% OP SOLN 5 ML BTL OPR SCH ×6 (04:24→23:28)
[2021-10-14 07:32] LABS: Hematocrit (blood only) 37.5 % (40.1-51.0); Mean Corpuscular Hgb Conc 34.7 g/dL (32.0-36.0); Mean Corpuscular Volume 86.6 fL (80.0-100.0); Mean Platelet Volume 9.2 fL (9.4-12.4); Platelet Count 470 K/uL (130-400); RDW Coefficient of Variation 14.1 % (11.5-14.5); RDW Standard Deviation 44.9 fL (36.4-46.3); Red Blood Count 4.33 M/uL (4.63-6.08); White Blood Count 13.51 K/ul (4.8-10.8)
[2021-10-14 07:59] LABS: BUN Creatinine Ratio 17.4 (10-20); Calcium 8.8 mg/dl (8.5-10.1); Creatinine Clr Calc Pharmacy 47.8 ml/min; Est GFR (African American) 70.4 ml/min; Est GFR (Non-African American) 60.7 ml/min; Potassium 3.4 mmol/L (3.5-5.1)
[2021-10-14] MEDS: MIRABEGRON ER 25 MG TAB PO SCH (08:38)
[2021-10-14] MEDS: HEPARIN SOD 5,000 UNIT/0.5 ML VIAL SQ SCH ×2 (08:38→21:09)
[2021-10-14] MEDS: DONEPEZIL HCL 10 MG TAB PO SCH (08:38)
--- NOTE | 2021-10-14 16:02 | Hospitalist Progress Note ---
Date of Service October 14, 2021 Assessment & Plan (1) Cellulitis of head or scalp: Plan: Cellulitis with abscess formation of scalp that failed outpatient treatment. - Blood cultures positive w/ growth of staph, MSSA via biofire c/w bacteremia - D/c Rocephin/Vanco and changed to Ancef 2g IV q8h on 10/11 - Consult general surgery for I&D, performed bedside by IVA, tolerated well, no issues - Leukocytosis from admission initially nearly resolved but is now ticking back up - Some concern for new abscess behind left ear. U/s ordered on 10/13. Official read noted no abscess - ID consulted but still awaiting their input. For now, not spiking temps, no change in abx, continue to monitor - Of note, repeat blood cultures drawn 10/12 with one set still positive so still not able to place midline until these are clear. - Repeat labs ordered for 10/13 (2) Bacteremia: Plan: - MSSA, abx as above - Echocardiogram completed, although no evidence of vegetation, study quality not great - Repeat blood cultures 10/12, if negative will require midline insertion and total of 14 days of IV abx - KAMILLA on 10/13 without vegetation. - ID consult placed, appreciate input, still hasn't been seen (3) Hypokalemia: Plan: - Replacement ordered (4) Alzheimer disease: Plan: - Advanced - Continue Aricept (5) BPH w urinary obs/LUTS: Plan: - Continue Flomax Plan Continue eye drops to R for conjunctivitis which is improving. Trend wbc count w/ follow up labs in AM. Another set of blood cultures ordered 10/14. Plan d/w Dr. Jun Manuel. Admission and Anticipated Discharge Date Admission Date: October 11, 2021 Subjective Patient was seen on daily rounds this morning. He is resting comfortably in bed, keeps stating that he has to use the bathroom to have a BM but guards state that when they try to get him up to use the RR he doesn't know why he's getting out of bed. Seems more confused today although verbalizes no c/o pain or discomfort. Per RN, still hasn't been seen by ID and unsure as to when his consult will be done. Review of Systems Review of Systems: All systems reviewed and are unremarkable except as noted in HPI and below. Denies fever, chills, fatigue, headache, nasal congestion, sore throat, chest pain, shortness of breath, palpitations, orthopnea, PND, abdominal pain, n/v/d, constipation, dysuria, hematuria, frequency, back pain, joint pain or swelling, easy bruising or bleeding. *Pt's reliability is questionable given his dementia Physical Exam Physical Exam: GENERAL: 85 yo Well-developed, well-nourished elderly WM. NAD. LUNGS: Clear to auscultation bilaterally. No W/R/R. CARDIOVASCULAR: Regular rate and rhythm. ABDOMEN: Soft, non-tender and non-distended. BS normoactive x 4 quad. EXTREMITIES: No edema. Non-tender. Peripheral pulses +2/4. NEUROLOGIC: A&O x3. Nonfocal PSYCHIATRIC: Pleasant, Cooperative. Appropriate mood and affect. SKIN: Warm, dry, intact. Erythema noted over L side of scalp and around his L ear. Abscess site w/ dressing in place. Results & Data Results & Data ([facility]) Vital Signs (Past 12 Hours) Vital Signs Temp Pulse Resp BP Pulse Ox O2 Del Method 10/14/21 15:29 36.8 C 88 20 118/76 94 Room Air 10/14/21 08:59 36.8 C 92 H 16 111/72 92 Room Air Laboratory Results 10/14/21 07:08 10/14/21 07:08 PG Care Time/CCT Total # of Minutes Spent Total Time Spent with Patient: Total time spent is greater than 50% in coordination of care (as documented) at patient's floor/unit and/or counseling patient: Coding Level of Care Code 34131 Subseq Hosp Care Lvl 2 Diagnoses Cellulitis of head or scalp L03.811 Bacteremia R78.81 Hypokalemia E87.6 Alzheimer disease G30.9; F02.80 BPH w urinary obs/LUTS N40.1; N13.8
[2021-10-14] MEDS ORDERED: POTASSIUM CHLORIDE CRTAB 20 MEQ TABCR PO STA (16:19)
[2021-10-14] MEDS: TAMSULOSIN HCL 0.4 MG CAP PO SCH (21:08)
[2021-10-14] MEDS: ACETAMINOPHEN 325 MG TAB PO PRN (21:08)
[2021-10-14] MEDS: hydrOXYzine HCl 25 MG TAB PO PRN (21:08)
[2021-10-15] MEDS: ceFAZolin 2000MG 2,000 MG/15 ML SYR IV SCH ×3 (04:44→21:46)
[2021-10-15] MEDS: GENTAMICIN SULFATE 0.3% OP SOLN 5 ML BTL OPR SCH ×5 (04:44→20:10)
[2021-10-15 07:16] LABS: Basophils # (auto) 0.06 K/uL (0-0.2); Basophils % (auto) 0.5 %; Eosinophils # (auto) 0.52 K/uL (0-0.50); Eosinophils % (auto) 4.4 %; Hematocrit (blood only) 37.6 % (40.1-51.0); Hemoglobin 12.9 g/dl (14.0-18.0); Immature Granulocytes # (auto) 0.14 K/uL (0.00-0.02); Immature Granulocytes % (auto) 1.2 %; Lymphocytes # (auto) 1.93 K/uL (1.2-3.4); Lymphocytes % (auto) 16.3 %; Mean Corpuscular Hemoglobin 29.9 pg (25.0-34.0); Mean Corpuscular Hgb Conc 34.3 g/dL (32.0-36.0); Mean Platelet Volume 9.3 fL (9.4-12.4); Monocytes # (auto) 1.26 K/uL (0.24-0.82); Monocytes % (auto) 10.6 %; Neutrophils # (auto) 7.96 K/uL (1.4-6.5); Platelet Count 497 K/uL (130-400); RDW Coefficient of Variation 14.5 % (11.5-14.5); RDW Standard Deviation 46.5 fL (36.4-46.3); Red Blood Count 4.32 M/uL (4.63-6.08); White Blood Count 11.87 K/ul (4.8-10.8)
[2021-10-15 07:44] LABS: BUN Creatinine Ratio 20.3 (10-20); Calcium 8.6 mg/dl (8.5-10.1); Creatinine Clr Calc Pharmacy 42.3 ml/min; Est GFR (African American) 60.8 ml/min; Est GFR (Non-African American) 52.5 ml/min; Magnesium 2.1 mg/dl (1.7-2.4); Potassium 3.6 mmol/L (3.5-5.1)
[2021-10-15] MEDS: MIRABEGRON ER 25 MG TAB PO SCH (09:58)
[2021-10-15] MEDS: DONEPEZIL HCL 10 MG TAB PO SCH (09:58)
[2021-10-15] MEDS: HEPARIN SOD 5,000 UNIT/0.5 ML VIAL SQ SCH ×2 (09:58→20:57)
--- NOTE | 2021-10-15 20:05 | Hospitalist Progress Note ---
Date of Service October 15, 2021 Assessment & Plan (1) Cellulitis of head or scalp: Plan: Cellulitis with abscess formation of scalp that failed outpatient treatment. - Blood cultures positive w/ growth of MSSA c/w septicemia - initially on Rocephin/Vanco and changed to Ancef 2g IV q8h on 10/11-would complete 2 weeks from time of last positive BCx-last day of tx 10/27 - Consult general surgery for I&D, performed bedside, tolerated well, no issues - Leukocytosis now resolving - Some concern for new abscess behind left ear due to pain but US negative and no fluctuance there on exam-seems to be cellulitis draining from abscess - ID consulted but still awaiting their input. For now, not spiking temps, no change in abx, continue to monitor - BCxs repeat from 10/14 remain NGTD -place PICC line after BCxs neg over 48 hrs and plan to return to [facility] on Ancef which has already been ordered in by [facility] (2) Bacteremia: Plan: Staphylococcal sepsis present on admission - MSSA, abx as above - Echocardiogram completed, although no evidence of vegetation, study quality not great - KAMILLA on 10/13 without vegetation. - ID consult placed, appreciate input, still hasn't been seen (3) Hypokalemia: Plan: resolved w/ replacement (4) Alzheimer disease: Plan: - Advanced - Continue Aricept (5) BPH w urinary obs/LUTS: Plan: - Continue Flomax Plan COnjunctivitis: Continue eye drops to R for conjunctivitis which is improving. Dispo-continued stay, awaiting ID consult Sunday hopefully but suspect can return to [facility] on Sunday Admission and Anticipated Discharge Date Admission Date: October 11, 2021 Subjective pt has pain behind left ear. ALso tells me about his recent trip to [place] with a woman and then asks me why he is in [facility]. Review of Systems Review of Systems: All systems reviewed & are unremarkable except as noted in HPI & below Physical Exam Constitutional: WD/WN, vitals as above Eyes: + conjunctival abnormality (erythema right eye) and + anicteric sclerae Neck: trachea midline, no thyromegaly Respiratory: normal respiratory effort, lungs clear to auscultation Cardiovascular: RRR, no murmur, no edema Chest (Breasts): Chest: normal inspection of chest Gastrointestinal (Abdomen): normal bowel sounds, soft, nontender, no hepatosplenomegaly Musculoskeletal: Extremities: extremities normal to inspection; no cyanosis and no clubbing Skin: posterior scalp lesion small drainage, no erythema; left postauricular region +TTP mild erythema, no fluctuance Neurologic: moves all extremities and awake; no focal motor deficits Psychiatric: Orientation: alert, oriented to person and cooperative Lymphatic: no lymphedema Results & Data Results & Data ([facility]) Vital Signs (Past 12 Hours) Vital Signs Temp Pulse Resp BP Pulse Ox O2 Del Method 10/15/21 15:39 36.4 C L 93 H 18 117/71 97 Room Air Laboratory Results labs reviewed PG Care Time/CCT Total # of Minutes Spent Total Time Spent with Patient: Total time spent is greater than 50% in coordination of care (as documented) at patient's floor/unit and/or counseling patient: Coding Level of Care Code 93434 Subseq Hosp Care Lvl 2 Diagnoses Cellulitis of head or scalp L03.811 Bacteremia R78.81 Hypokalemia E87.6 Alzheimer disease G30.9; F02.80 BPH w urinary obs/LUTS N40.1; N13.8
[2021-10-15] MEDS: TAMSULOSIN HCL 0.4 MG CAP PO SCH (21:46)
[2021-10-16] MEDS: GENTAMICIN SULFATE 0.3% OP SOLN 5 ML BTL OPR SCH ×7 (00:15→22:51)
[2021-10-16] MEDS: ceFAZolin 2000MG 2,000 MG/15 ML SYR IV SCH ×3 (04:41→21:55)
[2021-10-16] MEDS: HEPARIN SOD 5,000 UNIT/0.5 ML VIAL SQ SCH ×2 (07:57→21:55)
[2021-10-16] MEDS: MIRABEGRON ER 25 MG TAB PO SCH (07:57)
[2021-10-16] MEDS: DONEPEZIL HCL 10 MG TAB PO SCH (07:57)
[2021-10-16 08:46] LABS: Basophils # (auto) 0.06 K/uL (0-0.2); Basophils % (auto) 0.5 %; Eosinophils # (auto) 0.44 K/uL (0-0.50); Eosinophils % (auto) 3.8 %; Hematocrit (blood only) 37.2 % (40.1-51.0); Hemoglobin 12.5 g/dl (14.0-18.0); Immature Granulocytes # (auto) 0.11 K/uL (0.00-0.02); Lymphocytes # (auto) 1.74 K/uL (1.2-3.4); Lymphocytes % (auto) 15.1 %; Mean Corpuscular Hemoglobin 29.8 pg (25.0-34.0); Mean Corpuscular Hgb Conc 33.6 g/dL (32.0-36.0); Mean Corpuscular Volume 88.6 fL (80.0-100.0); Mean Platelet Volume 9.3 fL (9.4-12.4); Monocytes % (auto) 9.5 %; Neutrophils # (auto) 8.11 K/uL (1.4-6.5); Neutrophils % (auto) 70.1 %; Platelet Count 517 K/uL (130-400); RDW Coefficient of Variation 14.6 % (11.5-14.5); White Blood Count 11.56 K/ul (4.8-10.8)
[2021-10-16 09:11] LABS: Albumin Globulin Ratio 0.9 (0.9-2); Albumin Level 3.2 gm/dl (3.4-5.0); BUN Creatinine Ratio 22.7 (10-20); Bilirubin,Total 0.5 mg/dl (0.2-1.0); Calcium 8.8 mg/dl (8.5-10.1); Creatinine Clr Calc Pharmacy 43.8 ml/min; Est GFR (African American) 63.3 ml/min; Est GFR (Non-African American) 54.6 ml/min; Globulin 3.6 gm/dl (2.5-4.0); Potassium 3.9 mmol/L (3.5-5.1); Total Protein 6.8 gm/dl (6.0-8.3)
--- NOTE | 2021-10-16 17:52 | Hospitalist Progress Note ---
Date of Service October 16, 2021 Assessment & Plan (1) Cellulitis of head or scalp: Plan: Cellulitis with abscess formation of scalp that failed outpatient treatment. - Blood cultures positive w/ growth of MSSA c/w septicemia - initially on Rocephin/Vanco and changed to Ancef 2g IV q8h on 10/11-would complete 2 weeks from time of last positive BCx-last day of tx 10/27 - Consult general surgery for I&D, performed bedside, tolerated well, no issues - Leukocytosis now resolving - Some concern for new abscess behind left ear due to pain but US negative and no fluctuance there on exam-seems to be cellulitis draining from abscess-much less tender to palpation on 10/16 - ID consulted but still awaiting their input. For now, not spiking temps, no change in abx, continue to monitor - BCxs repeat from 10/14 remain NGTD -place PICC line after BCxs neg over 48 hrs and plan to return to assisted on Ancef which has already been ordered in by assisted-plan for PICC line on Sunday (2) Bacteremia: Plan: Staphylococcal sepsis present on admission - MSSA, abx as above - Echocardiogram completed, although no evidence of vegetation, study quality not great - KAMILLA on 10/13 without vegetation. - ID consult placed, appreciate input, still hasn't been seen (3) Hypokalemia: Plan: resolved w/ replacement (4) Alzheimer disease: Plan: - Advanced - Continue Aricept (5) BPH w urinary obs/LUTS: Plan: - Continue Flomax Plan COnjunctivitis: Continue eye drops to R for conjunctivitis which is improving. Dispo-continued stay, awaiting ID consult Sunday hopefully but suspect can return to assisted on Sunday after PICC line placement as long as Ancef is available at the assisted Admission and Anticipated Discharge Date Admission Date: October 11, 2021 Subjective Patient remains confused, but says that the pain behind his left ear is better than before. He does not know if he ate food today or not. The guard range in the room just came on shift and is not sure either. No other new issues as per nursing Review of Systems Review of Systems: All systems reviewed & are unremarkable except as noted in HPI & below Physical Exam Constitutional: WD/WN, vitals as above Eyes: + conjunctival abnormality (erythema right eye) and + anicteric sclerae Neck: trachea midline, no thyromegaly Respiratory: normal respiratory effort, lungs clear to auscultation Cardiovascular: RRR, no murmur, no edema Chest (Breasts): Chest: normal inspection of chest Gastrointestinal (Abdomen): normal bowel sounds, soft, nontender, no hepatosplenomegaly Musculoskeletal: Extremities: extremities normal to inspection; no cyanosis and no clubbing Skin: Wound posterior scalp with scant purulent drainage on dressing, minimal surrounding erythema Left postauricular region with minimal erythema and much improved/much less tenderness to palpation on examination, no fluctuance Neurologic: moves all extremities and awake; no focal motor deficits Psychiatric: Orientation: alert, oriented to person and cooperative Lymphatic: no lymphedema Results & Data Results & Data ([facility]) Vital Signs (Past 12 Hours) Vital Signs Temp Pulse Resp BP BP Pulse Ox O2 Del Method 10/16/21 14:04 36.6 C 65 19 150/88 H 92 Room Air 10/16/21 08:09 Room Air 10/16/21 07:31 36.5 C 81 20 127/74 93 Room Air Laboratory Results 10/16/21 10/16/21 Range/Units 08:22 08:22 WBC 11.56 H (4.8-10.8) K/ul RBC 4.20 L (4.63-6.08) M/uL Hgb 12.5 L (14.0-18.0) g/dl Hct 37.2 L (40.1-51.0) % MCV 88.6 (80.0-100.0) fL MCH 29.8 (25.0-34.0) pg MCHC 33.6 (32.0-36.0) g/dL RDW Std Deviation 47.0 H (36.4-46.3) fL RDW Coeff of Leo 14.6 H (11.5-14.5) % Plt Count 517 H (130-400) K/uL MPV 9.3 L (9.4-12.4) fL Immature Gran % (Auto) 1.0 % Neut % (Auto) 70.1 % Lymph % (Auto) 15.1 % Upson % (Auto) 9.5 % Eos % (Auto) 3.8 % Baso % (Auto) 0.5 % Neut # (Auto) 8.11 H (1.4-6.5) K/uL Lymph # (Auto) 1.74 (1.2-3.4) K/uL Upson # (Auto) 1.10 H (0.24-0.82) K/uL Eos # (Auto) 0.44 (0-0.50) K/uL Baso # (Auto) 0.06 (0-0.2) K/uL Immature Gran # (Auto) 0.11 H (0.00-0.02) K/uL Sodium 141 (136-145) mmol/L Potassium 3.9 (3.5-5.1) mmol/L Chloride 108 H (98-107) mmol/L Carbon Dioxide 24 (21-32) mmol/L Anion Gap 9 (3-11) BUN 27 H (6-23) mg/dl Creatinine 1.19 (0.6-1.4) mg/dl Est Cr Clr Drug Dosing 43.8 ml/min Est GFR ( Amer) 63.3 ml/min Est GFR (Non-Af Amer) 54.6 ml/min BUN/Creatinine Ratio 22.7 H (10-20) Glucose 90 (70-99(Fasting)) mg/dl Calcium 8.8 (8.5-10.1) mg/dl Total Bilirubin 0.5 (0.2-1.0) mg/dl AST 21 (13-39) U/L ALT 7 (7-52) U/L Alkaline Phosphatase 67 (34-104) U/L Total Protein 6.8 (6.0-8.3) gm/dl Albumin 3.2 L (3.4-5.0) gm/dl Globulin 3.6 (2.5-4.0) gm/dl Albumin/Globulin Ratio 0.9 (0.9-2) PG Care Time/CCT Total # of Minutes Spent Total Time Spent with Patient: Total time spent is greater than 50% in coordination of care (as documented) at patient's floor/unit and/or counseling patient: Coding Level of Care Code 24535 Subseq Hosp Care Lvl 1 Diagnoses Cellulitis of head or scalp L03.811 Bacteremia R78.81 Hypokalemia E87.6 Alzheimer disease G30.9; F02.80 BPH w urinary obs/LUTS N40.1; N13.8
[2021-10-16] MEDS: TAMSULOSIN HCL 0.4 MG CAP PO SCH (21:55)
[2021-10-17] MEDS: ACETAMINOPHEN 325 MG TAB PO PRN (01:02)
[2021-10-17] MEDS: hydrOXYzine HCl 25 MG TAB PO PRN (01:03)
[2021-10-17] MEDS: GENTAMICIN SULFATE 0.3% OP SOLN 5 ML BTL OPR SCH ×4 (04:28→14:56)
[2021-10-17] MEDS: ceFAZolin 2000MG 2,000 MG/15 ML SYR IV SCH ×2 (04:28→13:13)
[2021-10-17] MEDS: HEPARIN SOD 5,000 UNIT/0.5 ML VIAL SQ SCH (09:04)
[2021-10-17] MEDS: MIRABEGRON ER 25 MG TAB PO SCH (09:04)
[2021-10-17] MEDS: DONEPEZIL HCL 10 MG TAB PO SCH (09:04)
--- NOTE | 2021-10-17 11:24 | Discharge Summary ---
Date of Service October 17, 2021 Admission HPI Per Admitting Provider Franki is an 85-year-old male in the who presents from [facility] with a worsening scalp wound present for several days which did not improve on oral and then subsequently IV clindamycin. Wound culture was obtained on 10/08, remains pending. Redness at the scalp appears to be spreading. No MRSA, no history of diabetes. Patient does have dementia and picks at his wounds. Did have an abscess 1 year previously. Did get IM Rocephin yesterday. Failing to improve, has an area of fluctuance. Seen at the bedside. History is somewhat limited by dementia. Reports that he has had a large lump on the back of his head which is painful which he thinks oozes. Is not sure how long it has been there. Is not oriented to year. Endorses feeling feverish with some chills. No lightheadedness, dizziness, chest pain, chest pressure, palpitations. Did receive clindamycin p.o. for at least 5 days, then tried IV, and then received 1 dose of oral Rocephin with continued expansion of borders. Has been referred for additional treatment care cellulitis. Patient is unable to give medical history due to dementia and is tangential however medical review as follows: Vascular dementia without behavioral disturbance, Alzheimer's Incontinence History of corneal transplant Anemia with B12 deficiency BPH with LUTS Chronic medications Tylenol daily, artificial tears, donepezil 10 mg daily, finasteride 5 mg daily, hydroxyzine 25 mg 3 times daily, Myrbetriq 25 mg daily, prednisone ophthalmic into the left eye once daily, tamsulosin 0.4 mg 1 capsule twice daily Medical History: Reviewed Medications: Reviewed Surgical History: Reviewed Allergies: Reviewed Social History: No tobacco/alcohol use Code Status: Full code Principal Diagnosis 1. Scalp abscess/cellulitis 2. MSSA Bacteremia 3. Hypokalemia-replaced/resolved Discharge Exam GENERAL: 85 yo Well-developed, well-nourished elderly WM. NAD. LUNGS: Clear to auscultation bilaterally. No W/R/R. CARDIOVASCULAR: Regular rate and rhythm. ABDOMEN: Soft, non-tender and non-distended. BS normoactive x 4 quad. EXTREMITIES: No edema. Non-tender. Peripheral pulses +2/4. NEUROLOGIC: A&O x3. Nonfocal PSYCHIATRIC: Pleasant, Cooperative. Appropriate mood and affect. SKIN: Warm, dry, intact. Erythema noted over L side of scalp and around his L ear. Abscess site w/ dressing in place. Discharge Data Allergies Allergy/AdvReac Type Severity Reaction Status Date / Time sulfamethoxazole AdvReac Unknown Unknown Unverified 10/11/21 07:13 [From Bactrim] trimethoprim [From Bactrim] AdvReac Unknown Unknown Unverified 10/11/21 07:13 Consultations 10/11/21 12:39 Consult General Surgery Routine 10/12/21 11:31 Consult Infectious Diseases Routine 10/12/21 12:23 Consult Cardiology Routine 10/12/21 12:34 Consult Anesthesiology Routine Procedures Performed Operation Date: 10/13/21 07:15 Actual Procedures p Echo Transesophageal - Christian Garner MD s Echo Color Flow - Christian Garner MD s Echo Doppler Complete - Christian Garner MD Ordered Studies Chest X-Ray 10/10/21 11:44 XR chest 2V PA/lateral HISTORY: Sepsis COMPARISON: None. FINDINGS: There is a 2 cm calcification within the right upper lobe. This is likely benign. A 9 mm nodular density at the left lung base favors a nipple shadow. No focal lung consolidations to suggest pneumonia. No evidence for pulmonary edema. The heart is normal in size. No pleural effusions. No pneumothorax. IMPRESSION: No acute process. ACT 112: Negative or not required by law. Electronically signed by: Tam Child M.D. 10/10/2021 12:29 PM Head/Neck Ultrasound 10/10/21 15:40 US soft tissue head and neck CLINICAL HISTORY: limited to post R scalp, ?abscess. Left posterior scalp swelling. COMPARISON STUDY: Head CT 05/12/2019. FINDINGS: Real-time sonographic imaging of the posterior scalp was performed with financial representative images submitted. There is a subcutaneous ill-defined hypoechoic collection measuring 34 x 19 x 8 mm. There is increased color flow surrounding this area. There is a small tract that extends to the skin surface. Therefore, this favors a small abscess. Follow-up can be performed to ensure r esolution and to exclude an infiltrating lesion. IMPRESSION: There is a subcutaneous ill-defined hypoechoic collection measuring 34 x 19 x 8 a small tract that extends to the skin surface. This favors a small abscess. Follow-up can be performed to ensure resolution and to exclude an infiltrating lesion. ACT 112: Negative or not required by law. Electronically signed by: Tam Child M.D. 10/11/2021 8:45 AM Orbit MRI 10/11/21 12:38 MR orbit wo/w con CLINICAL HISTORY: Right eye vision changes. COMPARISON STUDY: Head CT May 12, 2019. TECHNIQUE: Utilizing a 1.5 Rosi magnet and dedicated coil, multiplanar, multiecho imaging of the orbits was performed pre and postcontrast administration. Thin cut imaging was performed Intravenous injection of 7.5 cc of Gadavist was uneventful. FINDINGS: There are no foci of restricted diffusion to suggest acute infarct. No acute intracranial hemorrhage, midline shift or mass effect is present. Ventricular dilatation is unchanged since head CT of May 12, 2019. This is due to atrophy. No extra axial collections are present. Basal cisterns are patent. White matter T2 hyperintense foci favor small vessel disease. Left parietal scalp soft tissue swelling is noted. No abnormality of the orbits is identified on this exam. Specifically, there is no orbital mass or fluid collection. Extraocular muscles are unremarkable. No abnormal enhancement within the orbits is identified. Minimal ethmoid sinus mucosal thickening is present. No evidence for acute sinusitis. Soft tissues adjacent to the orbits are unremarkable. Calvarial signal is normal. IMPRESSION: 1. No acute intracranial findings. 2. No orbital abnormality identified. 3. Left frontal scalp soft tissue swelling and suspected postsurgical change. 4. Moderate atrophy and extensive small vessel disease. ACT 112: Negative or not required by law. Electronically signed by: Jose French M.D. 10/11/2021 9:22 PM KUB X-Ray 10/11/21 16:15 KUB CLINICAL HISTORY: screening for MRI COMPARISON STUDY: None. FINDINGS: Surgical staple line within the right abdomen is noted. There is no contraindication to MRI within the abdomen or pelvis. Pelvic calcifications likely reflect phleboliths. There is moderate vascular calcification. Elevation of the right hemidiaphragm is incidentally noted. No evidence for a bowel obstruction. IMPRESSION: No contraindication to MRI within the abdomen or pelvis. ACT 112: Negative or not required by law. Electronically signed by: Jose French M.D. 10/11/2021 8:24 PM Orbit X-Ray 10/11/21 19:39 ORBIT RADIOGRAPHS 3 VIEWS HISTORY: pre-MRI screening. COMPARISON: Head CT May 12, 2019. FINDINGS: There are no radiopaque foreign bodies identified within the orbits. IMPRESSION: No radiopaque foreign bodies identified within the orbits. ACT 112: Negative or not required by law. Electronically signed by: Jose French M.D. 10/11/2021 8:09 PM Chest X-Ray 10/12/21 14:35 XR chest 1V portable HISTORY: cough COMPARISON: Chest 10/10/2021. FINDINGS: Slightly rotated study. There is elevation of the right hemidiaphragm. The No focal lung consolidations to suggest pneumonia. No evidence for pulmonary edema. The heart is normal in size. No pleural effusions. No pneumothorax. IMPRESSION: 1. No focal lung consolidations to suggest pneumonia. 2. Chronic elevation of the right hemidiaphragm. ACT 112: Negative or not required by law. Electronically signed by: Tam Child M.D. 10/12/2021 4:05 PM Head/Neck Ultrasound 10/13/21 10:28 US soft tissue head and neck CLINICAL HISTORY: Swelling Behind left superior ear - I think abscess is there. COMPARISON STUDY: Neck ultrasound 10/11/2021 FINDINGS: Real-time sonographic imaging of the left postauricular scalp was performed with financial representative images submitted. No mass, fluid collections, lymphadenopathy identified. Mild soft tissue thickening. No increased color flow. Small vascular structures appear patent. IMPRESSION: Mild soft tissue thickening within the left postauricular scalp. No fluid collections. ACT 112: Negative or not required by law. Electronically signed by: Tam Child M.D. 10/13/2021 2:41 PM Hospital Course (1) Cellulitis of head or scalp: Cellulitis with abscess formation of scalp that failed outpatient treatment. - Blood cultures positive w/ growth of MSSA c/w septicemia - initially on Rocephin/Vanco and changed to Ancef 2g IV q8h on 10/11-would complete 2 weeks from time of last positive BCx-last day of tx 10/27 - Consult general surgery for I&D, performed bedside on 10/11, tolerated well, no issues - Leukocytosis now resolving - Some concern for new abscess behind left ear due to pain but US negative and no fluctuance there on exam-seems to be cellulitis draining from abscess-much less tender to palpation on 10/16 - BCxs repeat from 10/14 remain NGTD - place midline today as he will need another 8 days of IV abx after today (for total of 14 days)-then can d/c back to [facility] - Obtained consent for midline placement and return of patient with [employer] at the [place] [facility], Dr. Penn on 10/17 - ID consulted but still has not yet seen this patient; however, given that his blood cultures are cleared and KAMILLA is negative, will plan for total of 14 days of IV Ancef. ID consult has been cancelled. Plan for d/c back to [facility] with 8 more days of IV Ancef. (2) Bacteremia: Staphylococcal sepsis present on admission - MSSA, abx as above - Echocardiogram completed, although no evidence of vegetation, study quality not great - KAMILLA on 10/13 without vegetation. - ID consult placed, appreciate input, still hasn't been seen (3) Alzheimer disease: - Advanced, continue Aricept (4) BPH loc w urin obs/LUTS: - Continue Proscar Plan At this time, pt is medically and hemodynamically stable for discharge back to [facility] after placement of midline and dose of Ancef at 1300 today. His next dose will be due at 2100 tonight. Snf will have abx in for patient's next dose this evening. Plan has been d/w Dr. Ellison who has also seen and evaluated this patient and is in agreement with aforementioned. Total Time Total Time Spent Total Time Spent (In Minutes): >30 minutes Discharge Plan Discharge Items [facility] Reason For Visit: CELLULITIS FAILED OUTPT TX Discharge Diagnosis: skin and blood stream infection Activity: Resume your previous activity Non-emergency contact: Primary Care Provider Call non-emergency contact if: you have any medication questions and your symptoms worsen Follow-up/Referrals: [facility] [Primary Care Provider] - Diet: Regular Addtl Attending Provider Instructions: Patient was hospitalized due to cellulitis/skin infection that failed outpatient treatment. He was found to have blood stream infection which was positive for growth of methicillin-sensitive staph aureus. He underwent a bedside incision and debridement of a small abscess on his scalp. This was felt to be the site/source of infection. He underwent a transesophageal echocardiogram to ensure that the staph did not migrate to his heart valves. The KAMILLA was negative. He is being discharged on Ancef 2g IV q8h, his next dose will be due this evening (10/17) at 9pm. He is receiving his doses at 0500, 1300, and 2100. The medical team at the [facility] can follow up with this patient upon his return. If any questions following the discharge, you may contact the nonemergency number listed on his discharge paperwork. Pending Studies at Discharge: No Stand-Alone Forms: My [facility] [address] Skilled Items Patient informed of condition?: Yes Discharge Level of Care: Other Communicable Disease: No Discharge Prognosis: Improving Lines: Mid-Line Urinary Catheter: No Medications and DC Order Prescriptions: New donepezil 10 mg Tablet 10 mg PO QAM Qty: 30 0RF cefazolin 2 gram recon soln 1 g IM Q8H Qty: 25 0RF Rx Instructions: after 10/17, continue x 8 more days Continued Myrbetriq 25 mg tablet extended release 24 hr 25 mg PO DAILY Qty: 30 2RF polyvinyl alcohol [Artificial Tears (polyvin alc)] 1.4 % Drops 1 drp OPB QID prednisolone acetate [Pred Forte] 1 % Drops,Suspension 1 drp OPHTHALMIC (EYE) UD erythromycin 5 mg/gram (0.5 %) Ointment 1 applic OPL TID finasteride 5 mg Tablet 5 mg PO DAILY cyanocobalamin (vitamin B-12) 1,000 mcg/mL Kit 1,000 mcg IM Q4WK Rx Instructions: Sunday fluconazole 150 mg tablet 150 mg PO .weekly Qty: 8 0RF Rx Instructions: administer on day 1 of therapy ketoconazole 2 % shampoo See Rx Instructions .ROUTE .COMPLEX Qty: 120 0RF Rx Instructions: 1 applic topically three times weekly for 2 weeks Discharge Orders: Discharge Order (Routine); Ordered 10/17/21 Ordered By: Vanessa Nicholson Admission Data Admit Date/Time: 10/11/21 12:41 Attending Provider: Shaun Ellison Admit Provider: Gerard Viera Primary Care Provider: [facility] Other Providers: Jamar Manuel ; Loy Valderrama ; Brennan Ulloa ; Mario Luther ; Eliel Zaman I. ; Reji Bentley II ; Lata Tejeda ; Portillo Antoine ; Vaughn Cox ; Christian Garner Other Interventions: Discharge Summary Assessment (RN) Last Done: 10/17/21 14:07 Supervising Physician Co-Signing Physician Notes During face to face encounter, patient seen and examined at bedside. I reviewed above not and agree with it. Patient had cellulitis of the scalp. This was treated with antibiotics. Patient had no new complaints. D/W [facility] Nicholson, and patient discharge plan. Patient will be discharged on antibiotics: IV ancef. Coding Level of Care Code D/C DAY MANAGEMENT >30 MINS Diagnoses Cellulitis of head or scalp L03.811 Bacteremia R78.81 Alzheimer disease G30.9; F02.80 BPH loc w urin obs/LUTS N40.1
== END 2021-10-17 17:59 | DRG 854 ==
LOC: ED 10:21 → EDINP 10:21 → MERGE 15:05 → SUATTDRO 15:05 → 3W 17:30 → SUATTDRO 10-11 12:41
DX: F02.80 Dementia in other diseases classified elsewhere, unspecified severity, without behavioral disturbance, psychotic disturbance, mood disturbance, and anxiety; G30.9 Alzheimer's disease, unspecified; N40.1 Benign prostatic hyperplasia with lower urinary tract symptoms; L02.811 Cutaneous abscess of head [any part, except face]; E87.6 Hypokalemia; R33.9 Retention of urine, unspecified; A41.01 Sepsis due to Methicillin susceptible Staphylococcus aureus; I45.10 Unspecified right bundle-branch block; Z88.2 Allergy status to sulfonamides; F20.9 Schizophrenia, unspecified